=== PATIENT | male | born 1935 | race Caucasian/White ===

== ENCOUNTER 2016-07-30 13:09 | Emergency (ER) | payer OTHER ==
[2016-07-30 13:29] VITALS: TEMP 99.8; BMI 28.7
--- NOTE | 2016-07-30 14:06 | PDOC ---
History of Present Illness - General History Source: Patient Exam Limitations: No Limitations - History of Present Illness Initial Comments: CHIEF COMPLAINT: 81 y/o febrile male with PMH NIDDM, HTN c/o body aches, chills and fever for the past 2 days. HISTORY OF PRESENT ILLNESS: He also admits to nausea and vomiting today. He denies IBARRA, neck pain, sore throat, cough, CP, SOB, abd pain, back pain, hematuria, dysuria. The patient took Advil last night and this morning for his fever. He has been taking Amoxicillin 3x per day for a tooth that was pulled last week and he denies mouth pain. Vital signs on arrival are notable for temp of 99.8. REVIEW OF SYSTEMS: GENERAL/CONSTITUTIONAL: +fever/chills. +body aches. No weakness. No weight change. HEAD, EYES, EARS, NOSE AND THROAT: No change in vision. No ear pain or discharge. No sore throat. CARDIOVASCULAR: No chest pain or shortness of breath. RESPIRATORY: No cough, wheezing, or hemoptysis. GASTROINTESTINAL: +nausea and vomiting. No diarrhea, constipation, abd pain. GENITOURINARY: No dysuria, frequency, or change in urination. MUSCULOSKELETAL: No joint or muscle swelling or pain. No neck or back pain. SKIN: No rash or easy bruising. NEUROLOGIC: No headache, vertigo, loss of consciousness, or loss of sensation. PSYCHIATRIC: No depression or anxiety. ENDOCRINE: No increased thirst. No abnormal weight change. HEMATOLOGIC/LYMPHATIC: No anemia, easy bleeding, or history of blood clots. ALLERGIC/IMMUNOLOGIC: No hives or skin allergy. No latex allergy. PHYSICAL EXAM: GENERAL: The patient is awake, alert, and fully oriented, in no acute distress. He is ambulatory and non toxic appearing. HEAD: Normal with no signs of trauma. ENT: Pupils equal, round and reactive to light, extraocular movements intact, sclera anicteric, conjunctiva clear. Neck supple. Mucous membranes moist. LUNGS: Clear to auscultation bilaterally. Normal excursion. No respiratory distress or use of accessory muscles. CV: RRR, S1/S2, no MRG. Cap refill < 2 sec. ABDOMEN: Soft, non-distended, non-tender even to deep palpation, no hepatomegaly or splenomegaly, no masses. EXTREMITIES: Normal range of motion, no edema. NEUROLOGICAL: Normal speech, normal gait. CN II-XII grossly intact. PSYCH: Normal mood, normal affect. SKIN: Warm, dry, normal turgor, no rashes or lesions noted. <Mary Paredes - Last Filed: 07/30/16 19:14> <Giana العلي - Last Filed: 07/30/16 20:37> - General Chief Complaint: Weakness Stated Complaint: WEAKNESS Time Seen by Provider: 07/30/16 13:54 Past History - Past Medical History Diabetes: Yes HTN: Yes Hypercholesterolemia: Yes - Psycho/Social/Smoking Cessation Hx Suicidal Ideation: No Smoking History: Never smoked Have you smoked in the past 12 months: Yes Number of Cigarettes Smoked Daily: 1 Information on smoking cessation initiated: No Hx Alcohol Use: Yes Drug/Substance Use Hx: No Hx Substance Use Treatment: No <Mary Paredes - Last Filed: 07/30/16 19:14> <Giana العلي - Last Filed: 07/30/16 20:37> - Past Medical History Allergies/Adverse Reactions: Allergies Allergy/AdvReac Type Severity Reaction Status Date / Time No Known Drug Allergies Allergy Verified 07/30/16 13:29 Home Medications: Ambulatory Orders Aspirin Coated [Ecotrin -] 81 mg PO DAILY 08/31/13 Metoprolol Succinate [Toprol XL -] 50 mg PO DAILY 08/31/13 Allopurinol [Zyloprim -] 100 mg PO DAILY 07/30/16 Amlodipine Besylate 5 mg PO 07/30/16 Amoxicillin - [Amoxicillin 500mg Capsule -] 500 mg PO TID 07/30/16 Glimepiride [Amaryl -] 4 mg PO DAILY 07/30/16 Mirabegron [Myrbetriq] 50 mg PO 07/30/16 Sitagliptin Phosphate [Januvia] 50 mg PO 07/30/16 *Physical Exam - Vital Signs Last Vital Signs Temp Pulse Resp BP Pulse Ox 99.8 F H 79 18 128/77 97 07/30/16 13:25 07/30/16 13:25 07/30/16 13:25 07/30/16 13:25 07/30/16 13:25 <Mary Paredes - Last Filed: 07/30/16 19:14> - Vital Signs Last Vital Signs Temp Pulse Resp BP Pulse Ox 99.8 F H 70 16 146/86 97 07/30/16 13:25 07/30/16 17:31 07/30/16 17:31 07/30/16 17:31 07/30/16 17:31 <Giana العلي - Last Filed: 07/30/16 20:37> ED Treatment Course - LABORATORY CBC & Chemistry Diagram: 07/30/16 14:26 07/30/16 14:26 <Mary Paredes - Last Filed: 07/30/16 19:14> - LABORATORY CBC & Chemistry Diagram: 07/30/16 14:26 07/30/16 18:20 - ADDITIONAL ORDERS Additional order review: Laboratory Results 07/30/16 07/30/16 18:20 14:26 Sodium 141 Potassium 4.6 D 5.9 H Chloride 105 Carbon Dioxide 27 Anion Gap 9 BUN 43 H Creatinine 3.2 H Creat Clearance w eGFR 18.74 Random Glucose 78 Calcium 10.7 H Total Bilirubin 0.5 AST 42 H ALT 31 D Alkaline Phosphatase 46 Total Protein 9.0 H Albumin 4.1 07/30/16 14:26 Influenza Types A,B Antigen (HAZEL) - Final Nasopharyngeal Swab - Final 07/30/16 14:26 RBC 5.57 MCV 86.4 MCHC 32.3 RDW 15.2 MPV 7.5 Neutrophils % 69.0 Lymphocytes % 18.8 Monocytes % 7.8 Eosinophils % 3.8 Basophils % 0.6 - Medications Given in the ED: ED Medications Discontinued Medications Generic Name Dose Route Start Last Admin Trade Name Rajiv PRN Reason Stop Dose Admin Acetaminophen 1,000 mg 07/30/16 14:07 07/30/16 14:42 Ofirmev Injection - IVPB 07/30/16 14:08 1,000 mg ONCE ONE Administration Sodium Chloride 1,000 mls @ 1,000 mls/hr 07/30/16 14:07 07/30/16 14:41 Normal Saline - IV 07/30/16 15:06 1,000 mls/hr ASDIR STA Administration Sodium Chloride 1,000 mls @ 1,000 mls/hr 07/30/16 16:00 07/30/16 16:35 Normal Saline - IV 07/30/16 16:59 1,000 mls/hr ASDIR STA Administration Ondansetron HCl 4 mg 07/30/16 14:37 07/30/16 15:17 Zofran Injection IVPUSH 07/30/16 14:38 Not Given ONCE ONE <Giana العلي - Last Filed: 07/30/16 20:37> Medical Decision Making - Medical Decision Making A/P: 81 y/o febrile male with possible flu. Plan is as follows: 1. Labs 2. IV fluids 3. Ofirmev 4. IV zofran 5. Influenza A&B Influenza A&B - negative Potassium 5.9. Ordered 2nd bag IV fluids The patient states he feels much better after 2 bags of fluid and Tylenol. Potassium has improved. Will discharge to home with dx of viral syndrome. Suggested he take 650mg of TYlenol every 4 hours for fever, drink plenty of fluids and f/u with his PCP this week. Pt instructed to return to the ER with any worsening or concerning symptoms The patient verbalizes understanding of all instructions, has no further questions and is awaiting discharge. <Mary Paredes - Last Filed: 07/30/16 19:14> - Medical Decision Making 07/30/16 20:34 Patient K+ 4.6. Spoke with patient son who confirmed with his mother that BUN/ Creat are usually 25/>2.5. This is the patients normal values per family. Patient feeling better and has no other complaints at this time. <Giana العلي - Last Filed: 07/30/16 20:37> *DC/Admit/Observation/Transfer <Mary Paredes - Last Filed: 07/30/16 19:14> - Discharge Dispostion Admit: No <Giana العلي - Last Filed: 07/30/16 20:37> Diagnosis at time of Disposition: Viral syndrome, Dehydration, Mild renal insufficiency - Discharge Dispostion Disposition: HOME Condition at time of disposition: Improved - Referrals Referrals: Lauren Dupont MD [Primary Care Provider] - Call tomorrow - Patient Instructions Printed Discharge Instructions: DI for Viral Syndrome Additional Instructions: Discharge Instructions: -Take 650mg of Tylenol every 4 hours for fever -Drink plenty of fluids -Get plenty of rest -Call your doctor in the morning -Return to the ER with any worsening or concerning symptoms. - Post Discharge Activity Work/School Note: Back to Work
[2016-07-30] MEDS ORDERED: SODIUM CHLORIDE 1,000 ML IV STA ×2 (14:07→16:00)
[2016-07-30] MEDS ORDERED: ACETAMINOPHEN 1000 MG/100 ML VIAL (NON FORMULARY) IVPB ONE (14:07)
[2016-07-30] MEDS ORDERED: ACETAMINOPHEN INJECTION 100 ML IVPB ONE (14:10)
[2016-07-30] MEDS ORDERED: ONDANSETRON 4 MG/2 ML VIAL IVPUSH ONE (14:37)
[2016-07-30 14:44] LABS: BASOPHIL 0.6 % (0-2.0); EOSINOPHIL 3.8 % (0-4.5); MCH 27.9 pg (25.7-33.7); MCHC 32.3 g/dl (32.0-35.9); MEAN CELL VOLUME 86.4 fl (80-96); MEAN PLT VOLUME 7.5 fl (7.5-11.1); PLATELET COUNT 239 K/MM3 (134-434); RDW 15.2 % (11.9-15.9); WHITE BLOOD COUNT 7.6 K/mm3 (4.0-10.0)
[2016-07-30] MEDS ORDERED: ONDANSETRON 4 MG/2 ML VIAL ONE (14:59)
[2016-07-30 15:07] LABS: ALBUMIN 4.1 g/dl (3.4-5.0); BILIRUBIN,TOTAL 0.5 mg/dL (0.2-1.0); CALCIUM 10.7 mg/dL (8.5-10.1); CREATININE 3.2 mg/dL (0.7-1.3)
[2016-07-30 17:32] VITALS: BP 146/86; PULSE 70
== END 2016-07-30 20:40 | disposition home or self-care (01) ==
LOC: JER 13:09
PROC: 3E0337Z Introduction of Electrolytic and Water Balance Substance into Peripheral Vein, Percutaneous Approach (ICD-10-PCS; principal; 2016-07-30)
PROC: 3E033NZ Introduction of Analgesics, Hypnotics, Sedatives into Peripheral Vein, Percutaneous Approach (ICD-10-PCS; 2016-07-30)
DX: B34.9 Viral infection, unspecified (principal); E86.0 Dehydration; N28.9 Disorder of kidney and ureter, unspecified; I10 Essential (primary) hypertension; E11.9 Type 2 diabetes mellitus without complications; Z79.84 Long term (current) use of oral hypoglycemic drugs; E78.00 Pure hypercholesterolemia, unspecified
CPT/HCPCS: 36415; 80053; 84132; 85025; 87804; 96361; 96374; 99282-25

== ENCOUNTER 2016-08-04 13:23 | Inpatient (IN) | payer OTHER ==
[2016-08-04] MEDS ORDERED: ONDANSETRON 4 MG/2 ML VIAL IVPB ONE (13:46)
[2016-08-04] MEDS ORDERED: SODIUM CHLORIDE 500 ML IV STA (13:46)
[2016-08-04 14:32] LABS: BASOPHIL 0.6 % (0-2.0); MCHC 32.6 g/dl (32.0-35.9); MEAN PLT VOLUME 7.7 fl (7.5-11.1); NEUTROPHILS 59.4 % (42.8-82.8); PLATELET COUNT 224 K/MM3 (134-434); RDW 15.1 % (11.9-15.9); WHITE BLOOD COUNT 7.3 K/mm3 (4.0-10.0)
--- NOTE | 2016-08-04 14:36 | PDOC ---
History of Present Illness - General History Source: Patient Exam Limitations: No Limitations - History of Present Illness Initial Comments: 08/04/16 18:42 The patient is a 81 year old male, with a significant past medical history of NIDDM and hypertension, who presents to the emergency department sent from PMD Dr. Dupont with dehydration and decreased appetite. As per family the patient is weak and tremorous. Patient was recently seen in the ED and had a negative flu swab and workup. He reports constipation. Patient denies any abdominal pain. Patient denies any visual changes or blurry vision, focal numbness/ tingling/weakness, fever/chills. He denies chest pain, shortness of breath, headache and dizziness. He denies nausea, vomit, diarrhea. He denies dysuria, frequency, urgency and hematuria. Social: denies any EtOH use PCP- Dr. Dupont <Maryann Blake - Last Filed: 08/04/16 18:42> <Rosales Jimenez - Last Filed: 08/05/16 09:23> - General Chief Complaint: Vomiting/Diarrhea Stated Complaint: SENT BY PCP Time Seen by Provider: 08/04/16 13:46 Past History <Maryann Blake - Last Filed: 08/04/16 18:42> - Past Medical History Diabetes: Yes Disorders: Yes (RENAL INSUFFICIENCY) HTN: Yes Hypercholesterolemia: Yes - Psycho/Social/Smoking Cessation Hx Anxiety: No Suicidal Ideation: No Smoking History: Never smoked Have you smoked in the past 12 months: Yes Number of Cigarettes Smoked Daily: 1 Hx Alcohol Use: No Drug/Substance Use Hx: No Substance Use Type: None Hx Substance Use Treatment: No <Rosales Jimenez - Last Filed: 08/05/16 09:23> - Past Medical History Allergies/Adverse Reactions: Allergies Allergy/AdvReac Type Severity Reaction Status Date / Time No Known Drug Allergies Allergy Verified 08/04/16 13:28 Home Medications: Ambulatory Orders Aspirin Coated [Ecotrin -] 81 mg PO DAILY 08/31/13 Metoprolol Succinate [Toprol XL -] 50 mg PO DAILY 08/31/13 Allopurinol [Zyloprim -] 100 mg PO DAILY 07/30/16 Amlodipine Besylate 5 mg PO DAILY 07/30/16 Amoxicillin - [Amoxicillin 500mg Capsule -] 500 mg PO TID 07/30/16 Glimepiride [Amaryl -] 4 mg PO DAILY 07/30/16 Mirabegron [Myrbetriq] 50 mg PO DAILY 07/30/16 Sitagliptin Phosphate [Januvia] 50 mg PO DAILY 07/30/16 Review of Systems - Review of Systems Able to Perform ROS?: Yes Comments:: 08/04/16 18:42 CONSTITUTIONAL: Reported: Generalized weakness, decreased appetite No reported: Fever, Chills, Diaphoresis, Malaise HEENT: No reported: Rhinorrhea, Nasal Congestion, Throat Pain, Throat Swelling, Difficulty Swallowing, Mouth Swelling, Ear Pain, Eye Pain, Visual Changes CARDIOVASCULAR: No reported: Chest Pain, Syncope, Palpitations, Irregular Heart Rate, Lightheadedness, Peripheral Edema RESPIRATORY: No reported: Cough, Shortness of Breath, SOB with Exertion, Orthopnea, Wheezing , Stridor, Hemoptysis GASTROINTESTINAL: No reported: Abdominal pain, Abdominal Distension, Nausea, Vomiting, Diarrhea, Constipation, Melena, Hematochezia GENITOURINARY: No reported: Dysuria, Frequency, Urgency, Hesitancy, Flank Pain, Genital Pain MUSCULOSKELETAL: No reported: Myalgia, Arthralgia, Joint Swelling, Back pain, Neck Pain SKIN: No reported: Rash, Itching, Pallor HEMATOLOGIC/IMMUNOLOGIC: No reported: Easy Bleeding, Easy Bruising, Lymphadenopathy, Frequent infections ENDOCRINE: No reported: Unexplained Weight Gain, Unexplained Weight Loss, Heat Intolerance , Cold Intolerance NEUROLOGIC: No reported: Headache, Focal Weakness, Paresthesias, Vertigo, Lightheadedness, Unsteady Gait, Seizure, Mental Status Changes, Incontinence PSYCHIATRIC: No reported: Anxiety, Depression <Maryann Blake - Last Filed: 08/04/16 18:42> *Physical Exam - Vital Signs Last Vital Signs Temp Pulse Resp BP Pulse Ox 98.7 F 84 18 130/98 98 08/04/16 17:46 08/04/16 17:46 08/04/16 17:46 08/04/16 17:46 08/04/16 17:46 - Physical Exam Comments: 08/04/16 18:43 GENERAL: The patient is awake, alert, and fully oriented, Nontoxic - in no acute distress. HEAD: Normocephalic, atraumatic. EYES: extraocular movements intact, sclera anicteric, conjunctiva clear. ENT: Normal voice, dry mucous membranes. NECK: Normal range of motion, No JVD LUNGS: Breath sounds equal, clear to auscultation bilaterally. No wheezes, no rhonchi, no rales. HEART: Regular rate and rhythm, normal S1 and S2 without murmur, rub or gallop. ABDOMEN: Soft, nontender, normoactive bowel sounds. No guarding, no rebound. No masses. No CVA tenderness EXTREMITIES: Normal range of motion, no edema. No clubbing or cyanosis. No cords , erythema, or tenderness. NEUROLOGICAL: No facial asymmetry, Normal speech, normal non ataxic gait with assistance, tremulous PSYCH: Normal mood, normal affect. SKIN: Warm, Dry, normal turgor. <Maryann Blake - Last Filed: 08/04/16 18:42> - Vital Signs Last Vital Signs Temp Pulse Resp BP Pulse Ox 97.4 F L 81 20 149/98 95 08/04/16 13:24 08/04/16 13:24 08/04/16 13:24 08/04/16 13:24 08/04/16 13:24 <Rosales Jimenez - Last Filed: 08/05/16 09:23> Heart Score/ECG Review - ECG Impressions Comment:: 08/04/16 17:44 Twelve-lead EKG was performed and reviewed by me. normal rate. rate of 80 The axis is normal. The intervals are normal. There is normal R wave progression There are no ST or T wave abnormalities. Impression: suspect nsr <Rosales Jimenez - Last Filed: 08/05/16 09:23> ED Treatment Course - LABORATORY CBC & Chemistry Diagram: 08/04/16 14:00 08/04/16 14:00 - ADDITIONAL ORDERS Additional order review: Laboratory Results 08/04/16 08/04/16 08/04/16 14:50 14:09 14:00 INR Sodium 148 H Potassium 4.4 Chloride 103 Carbon Dioxide 26 Anion Gap 19 H BUN 54 H D Creatinine 3.2 H Creat Clearance w eGFR 18.74 Random Glucose 86 Lactic Acid 1.300 Calcium 9.8 Magnesium 2.7 H Total Bilirubin 0.4 AST 17 D ALT 26 Alkaline Phosphatase 44 L Total Protein 8.0 Albumin 3.9 Urine Color Ltyellow Urine Appearance Slcloudy Urine pH 5.0 Ur Specific [place] 1.011 Urine Protein Negative Urine Glucose (UA) Negative Urine Ketones Negative Urine Blood Negative Urine Nitrite Negative Urine Bilirubin Negative Urine Urobilinogen Negative Ur Leukocyte Esterase Trace H Urine RBC 4 Urine WBC 5 Ur Epithelial Cells Rare Hyaline Casts 16 Granular Casts 15 Urine Mucus Rare 08/04/16 14:00 INR 1.10 Sodium Potassium Chloride Carbon Dioxide Anion Gap BUN Creatinine Creat Clearance w eGFR Random Glucose Lactic Acid Calcium Magnesium Total Bilirubin AST ALT Alkaline Phosphatase Total Protein Albumin Urine Color Urine Appearance Urine pH Ur Specific [place] Urine Protein Urine Glucose (UA) Urine Ketones Urine Blood Urine Nitrite Urine Bilirubin Urine Urobilinogen Ur Leukocyte Esterase Urine RBC Urine WBC Ur Epithelial Cells Hyaline Casts Granular Casts Urine Mucus 08/04/16 14:00 Influenza Types A,B Antigen (HAZEL) - Final Nasopharyngeal Swab - Final 08/04/16 14:00 RBC 5.36 MCV 86.0 MCHC 32.6 RDW 15.1 MPV 7.7 Neutrophils % 59.4 Lymphocytes % 27.4 D Monocytes % 8.6 Eosinophils % 4.0 Basophils % 0.6 - Medications Given in the ED: ED Medications Discontinued Medications Generic Name Dose Route Start Last Admin Trade Name Freq PRN Reason Stop Dose Admin Sodium Chloride 500 mls @ 500 mls/hr 08/04/16 13:46 08/04/16 15:09 Normal Saline - IV 08/04/16 14:45 500 mls/hr ASDIR STA Administration Ondansetron HCl 4 mg 08/04/16 13:46 08/04/16 15:23 Zofran Injection IVPB 08/04/16 13:47 Not Given ONCE ONE <Maryann Blake - Last Filed: 08/04/16 18:42> - LABORATORY CBC & Chemistry Diagram: 08/04/16 14:00 08/05/16 06:35 - ADDITIONAL ORDERS Additional order review: 08/04/16 14:00 RBC 5.36 MCV 86.0 MCHC 32.6 RDW 15.1 MPV 7.7 Neutrophils % 59.4 Lymphocytes % 27.4 D Monocytes % 8.6 Eosinophils % 4.0 Basophils % 0.6 - RADIOLOGY Radiology Studies Ordered: Category Date Time Status CHEST X-RAY PORTABLE* [RAD] Stat Radiology 08/04/16 13:46 Ordered <Rosales Jimenez - Last Filed: 08/05/16 09:23> Medical Decision Making - Medical Decision Making 08/04/16 15:07 81y F hx of htn, dm, hl sent by PMD for evaluation of FTT, also noted to be more shaky than usual - norecentfever/chills, sob, cp, abd pain, nv, diarrhea. pts exam unrearkable, only generally weak and UE are mildly tremlous. nonfocal exam differential includes metablolic derangement, anemia, occult infection will give fluids for hydration will reassess 08/04/16 17:03 case dw/ dr dupont (PMD) states his renal function is typically 2.2, currently 3.5, stable from previous - jeimy need hydration ct head showc chronic infarct dr. densia becerril pt to be admitted for hydration will boserve in med/surg case d/w [facility] RN en will admit under dr. raymond service Case discussed in detail with admitting physician including history, physical exam and ancillary studies. Admitting physician has assumed care for the patient, will follow all pending diagnostics and will complete the evaluation and treatment. A portion of this note was documented by scribe services under my direction. I have reviewed the details of the note, within reason, and agree with the documentation with the following case summary and management plan written by me <Rosales Jimenez - Last Filed: 08/05/16 09:23> *DC/Admit/Observation/Transfer - Attestations Scribe Attestion: 08/04/16 18:43 Documentation prepared by VERA Paul, acting as resident medical officer for Rosales Jimenez MD. <Maryann Blake - Last Filed: 08/04/16 18:42> - Discharge Dispostion Admit: Yes <Rosales Jimenez - Last Filed: 08/05/16 09:23> Diagnosis at time of Disposition: Dehydration, Acute on chronic renal failure, Coarse tremors - Discharge Dispostion Condition at time of disposition: Stable - Referrals
[2016-08-04 15:01] LABS: INR 1.1 (0.82-1.09); PROTHROMBIN TIME (PATIENT) 12.1 SEC (9.98-11.88)
[2016-08-04 15:04] LABS: URINE APPEARANCE SLCLOUDY; URINE BILIRUBIN NEGATIVE (NEGATIVE); URINE BLOOD NEGATIVE (NEGATIVE); URINE COLOR LTYELLOW; URINE GLUCOSE (UA) NEGATIVE (NEGATIVE); URINE KETONE NEGATIVE (NEGATIVE); URINE NITRITE NEGATIVE (NEGATIVE); URINE PROTEIN NEGATIVE (NEGATIVE); URINE UROBILINOGEN NEGATIVE E.U./dl (0.2-1.0)
[2016-08-04 15:08] LABS: URINE LEUK ESTERASE TRACE (NEGATIVE)
[2016-08-04 15:09] LABS: ALBUMIN 3.9 g/dl (3.4-5.0); BILIRUBIN,TOTAL 0.4 mg/dL (0.2-1.0); CALCIUM 9.8 mg/dL (8.5-10.1); CREATININE 3.2 mg/dL (0.7-1.3); MAGNESIUM 2.7 mg/dL (1.8-2.4)
[2016-08-04 15:13] LABS: GRANULAR CASTS 15 /lpf; URINE HYALINE CAST 16 /lpf; URINE MUCUS RARE; URINE RBC 4 /hpf (0-3); URINE WBC 5 /hpf (3-5)
--- NOTE | 2016-08-04 16:05 | EKG ---
Test Reason : Blood Pressure : / mmHG Vent. Rate : 080 BPM Atrial Rate : 079 BPM P-R Int : 180 ms QRS Dur : 090 ms QT Int : 384 ms P-R-T Axes : 044 055 059 degrees QTc Int : 442 ms POOR DATA QUALITY, INTERPRETATION MAY BE ADVERSELY AFFECTED BASELINE ARTIFACT:: LIKELY NORMAL SINUS RHYTHM, BUT CANNOT R/O ATRIAL ARRHYTHMIA. OTHERWISE NORMAL ECG NO PREVIOUS ECGS AVAILABLE RECOMMEND REPEAT EKG. Confirmed by CHANTE BALDERAS MD ([id number]) on 08/04/2016 4:05:18 PM Referred By: Confirmed By:CHANTE BALDERAS MD
[2016-08-04] MEDS ORDERED: SODIUM CHLORIDE 1,000 ML IV SCH (17:15)
--- NOTE | 2016-08-04 17:23 | PN ---
Physical Exam: SUBJECTIVE: Patient seen and examined OBJECTIVE: Vital Signs Period Temp Pulse Resp BP Sys/Kay Pulse Ox Last 24 Hr 97.4 F 81 20 149/98 95 GENERAL: The patient is awake, alert, and fully oriented, in no acute distress. HEAD: Normal with no signs of trauma. EYES: PERRL, extraocular movements intact, sclera anicteric, conjunctiva clear. No ptosis. ENT: Ears normal, nares patent, oropharynx clear without exudates, moist mucous membranes. NECK: Trachea midline, full range of motion, supple. LUNGS: Breath sounds equal, clear to auscultation bilaterally, no wheezes, no crackles, no accessory muscle use. HEART: Regular rate and rhythm, S1, S2 without murmur, rub or gallop. ABDOMEN: Soft, nontender, nondistended, normoactive bowel sounds, no guarding, no rebound, no hepatosplenomegaly, no masses. EXTREMITIES: 2+ pulses, warm, well-perfused, no edema. NEUROLOGICAL: Cranial nerves II through XII grossly intact. Normal speech, gait not observed. PSYCH: Normal mood, normal affect. SKIN: Warm, dry, normal turgor, no rashes or lesions noted Laboratory Results - last 24 hr 08/04/16 08/04/16 08/04/16 14:00 14:00 14:00 WBC 7.3 RBC 5.36 Hgb 15.0 Hct 46.1 MCV 86.0 MCHC 32.6 RDW 15.1 Plt Count 224 MPV 7.7 Neutrophils % 59.4 Lymphocytes % 27.4 D Monocytes % 8.6 Eosinophils % 4.0 Basophils % 0.6 INR 1.10 Sodium 148 H Potassium 4.4 Chloride 103 Carbon Dioxide 26 Anion Gap 19 H BUN 54 H D Creatinine 3.2 H Creat Clearance w eGFR 18.74 Random Glucose 86 Lactic Acid Calcium 9.8 Magnesium 2.7 H Total Bilirubin 0.4 AST 17 D ALT 26 Alkaline Phosphatase 44 L Total Protein 8.0 Albumin 3.9 Urine Color Urine Appearance Urine pH Ur Specific [place] Urine Protein Urine Glucose (UA) Urine Ketones Urine Blood Urine Nitrite Urine Bilirubin Urine Urobilinogen Ur Leukocyte Esterase Urine RBC Urine WBC Ur Epithelial Cells Hyaline Casts Granular Casts Urine Mucus 08/04/16 08/04/16 14:09 14:50 WBC RBC Hgb Hct MCV MCHC RDW Plt Count MPV Neutrophils % Lymphocytes % Monocytes % Eosinophils % Basophils % INR Sodium Potassium Chloride Carbon Dioxide Anion Gap BUN Creatinine Creat Clearance w eGFR Random Glucose Lactic Acid 1.300 Calcium Magnesium Total Bilirubin AST ALT Alkaline Phosphatase Total Protein Albumin Urine Color Ltyellow Urine Appearance Slcloudy Urine pH 5.0 Ur Specific [place] 1.011 Urine Protein Negative Urine Glucose (UA) Negative Urine Ketones Negative Urine Blood Negative Urine Nitrite Negative Urine Bilirubin Negative Urine Urobilinogen Negative Ur Leukocyte Esterase Trace H Urine RBC 4 Urine WBC 5 Ur Epithelial Cells Rare Hyaline Casts 16 Granular Casts 15 Urine Mucus Rare Active Medications Generic Name Dose Route Start Last Admin Trade Name Freq PRN Reason Stop Dose Admin Allopurinol 100 mg 08/05/16 10:00 Zyloprim - PO DAILY [facility] Amlodipine Besylate 5 mg 08/05/16 10:00 Norvasc - PO DAILY [facility] Aspirin 81 mg 08/05/16 10:00 Ecotrin - PO DAILY [facility] Glimepiride 4 mg 08/05/16 10:00 Amaryl - PO DAILY [facility] Sodium Chloride 1,000 mls @ 125 mls/hr 08/04/16 17:15 Normal Saline - IV ASDIR MINNA Metoprolol Succinate 50 mg 08/05/16 10:00 Toprol Xl - PO DAILY [facility] Non-Formulary Medication 50 mg 08/05/16 10:00 Mirabegron [Myrbetriq] PO DAILY [facility] Sitagliptin Phosphate 50 mg 08/05/16 10:00 Januvia - PO DAILY [facility] ASSESSMENT/PLAN:
[2016-08-04] MEDS ORDERED: SODIUM CHLORIDE 0.45% 1,000 ML IV SCH (17:30)
--- NOTE | 2016-08-04 18:12 | HP ---
CHIEF COMPLAINT: Shaking PCP: Dr. Dupont Manager Site: Dr. Jackman HISTORY OF PRESENT ILLNESS: This is an 81 year old male with a history of NIDDM , CKD, HTN, and tooth extraction approximately 1 week ago who presents to the ED for the second time complaining of subjective fevers/chills/rigors and generalized weakness. He reports that he had some vomiting and diarrhea one week ago, but that these have not recurred. He has not eaten for a full week because of poor appetite. He denies chest pain, shortness of breath, cough, abdominal pain, back pain, headache, dysuria, or any other symptoms. The patient was supposed to travel to [facility] this week, but did not go because he is feeling too ill. Patient is afebrile orally. ER course was notable for: (1) BUN/Cr 54/3.2 (baseline 2.2 per PCP) (2) AG 19 (3) Mild hypernatremia (148) (4) Flu negative Recent Travel: None PAST MEDICAL HISTORY: As per HPI PAST SURGICAL HISTORY: None Social History: Lives with son, retired Smoking: None Alcohol: Occasional Family History: No known family history of malignancies Allergies No Known Drug Allergies Allergy (Verified 08/04/16 13:28) HOME MEDICATIONS: Medication Instructions Recorded Aspirin Coated [Ecotrin -] 81 mg PO DAILY 08/31/13 Metoprolol Succinate [Toprol XL -] 50 mg PO DAILY 08/31/13 Allopurinol [Zyloprim -] 100 mg PO DAILY 07/30/16 Amlodipine Besylate 5 mg PO DAILY 07/30/16 Amoxicillin - [Amoxicillin 500mg 500 mg PO TID 07/30/16 Capsule -] Glimepiride [Amaryl -] 4 mg PO DAILY 07/30/16 Mirabegron [Myrbetriq] 50 mg PO DAILY 07/30/16 Sitagliptin Phosphate [Januvia] 50 mg PO DAILY 07/30/16 REVIEW OF SYSTEMS CONSTITUTIONAL: Subjective fevers/chills, generalized weakness, loss of appetite , malaise HEENT: Absent: rhinorrhea, nasal congestion, throat pain, throat swelling, difficulty swallowing, mouth swelling, ear pain, eye pain, visual changes CARDIOVASCULAR: Absent: chest pain, syncope, palpitations, irregular heart rate, lightheadedness , peripheral edema RESPIRATORY: Absent: cough, shortness of breath, dyspnea with exertion, orthopnea, wheezing, stridor, hemoptysis GASTROINTESTINAL: Absent: abdominal pain, abdominal distension, nausea, vomiting, diarrhea, constipation, melena, hematochezia GENITOURINARY: Absent: dysuria, frequency, urgency, hesitancy, hematuria, flank pain, genital pain MUSCULOSKELETAL: Absent: myalgia, arthralgia, joint swelling, back pain, neck pain SKIN: Absent: rash, itching, pallor HEMATOLOGIC/IMMUNOLOGIC: Absent: easy bleeding, easy bruising, lymphadenopathy, frequent infections ENDOCRINE: Absent: unexplained weight gain, unexplained weight loss, heat intolerance, cold intolerance NEUROLOGIC: Absent: headache, focal weakness or paresthesias, dizziness, unsteady gait, seizure, mental status changes, bladder or bowel incontinence PSYCHIATRIC: Absent: anxiety, depression, suicidal or homicidal ideation, hallucinations. PHYSICAL EXAMINATION Vital Signs - 24 hr 08/04/16 17:46 Temperature 98.7 F Pulse Rate [ 84 Left Radial] Respiratory 18 Rate Blood Pressure 130/98 [Right Arm] O2 Sat by Pulse 98 Oximetry (%) GENERAL: Awake, alert, and fully oriented, appears weak. HEAD: Normal with no signs of trauma. EYES: Pupils equal, round and reactive to light, extraocular movements intact, sclera anicteric, conjunctiva clear. No lid lag. EARS, NOSE, THROAT: Ears normal, nares patent, oropharynx clear without exudates. Moist mucous membranes. NECK: Normal range of motion, supple without lymphadenopathy, JVD, or masses. LUNGS: Breath sounds equal, clear to auscultation bilaterally. No wheezes, and no crackles. No accessory muscle use. HEART: Regular rate and rhythm, normal S1 and S2 without murmur, rub or gallop. ABDOMEN: Soft, nontender, not distended, normoactive bowel sounds, no guarding, no rebound, no masses. No hepatomegaly or splenomegaly. MUSCULOSKELETAL: Normal range of motion at all joints. No bony deformities or tenderness. No CVA tenderness. UPPER EXTREMITIES: 2+ pulses, warm, well-perfused. No cyanosis. No clubbing. Cap refill <2 seconds. No peripheral edema. LOWER EXTREMITIES: 2+ pulses, warm, well-perfused. No calf tenderness. No peripheral edema. NEUROLOGICAL: Cranial nerves II-XII intact. Normal speech. Normal gait. PSYCHIATRIC: Cooperative. Good eye contact. Appropriate mood and affect. SKIN: Warm, dry, normal turgor, no rashes or lesions noted. ASSESSMENT/PLAN: 81 year old male with weakness, loss of appetite, fever/chills/ rigors Problem List - Problem (1) Fever and chills Assessment/Plan: -Although no fever is documented here, patient and son report intermittent fevers for one week. In addition, he has been taking Tylenol at home. -There are no focal infectious symptoms -Flu is negative -Obtain CXR -Obtain rectal temp now -Repeat lactic acid -Follow up blood cultures -With recent dental procedure and non-specific flu-like symptoms, would consider echocardiogram to evaluate for endocarditis -Tylenol prn fever -Gentle IVF Code(s): R50.9 - FEVER, UNSPECIFIED (2) Acute on chronic renal failure Assessment/Plan: -Gentle hydration -Patient's learning solutions specialist consulted Code(s): N17.9 - ACUTE KIDNEY FAILURE, UNSPECIFIED N18.9 - CHRONIC KIDNEY DISEASE, UNSPECIFIED (3) Dehydration Assessment/Plan: -Hydration as above Code(s): E86.0 - DEHYDRATION (4) Increased anion gap metabolic acidosis Assessment/Plan: -Repeat lactic acid -Send serum ketones -Hydration Code(s): E87.2 - ACIDOSIS (5) Hypernatremia Assessment/Plan: -1/2 NS at 75 mL/hr -Repeat BMP now (patient received 1L NS in ED) Code(s): E87.0 - HYPEROSMOLALITY AND HYPERNATREMIA (6) DVT prophylaxis Code(s): EBT3780 - Visit type - Emergency Visit Emergency Visit: Yes ED Registration Date: 08/04/16 Care time: The patient presented to the Emergency Department on the above date and was hospitalized for further evaluation of their emergent condition. - New Patient This patient is new to me today: Yes Date on this admission: 08/04/16 - Critical Care Critical Care patient: No
[2016-08-04 19:00] LABS: ANION GAP 12 (8-16); CALCIUM 9.3 mg/dL (8.5-10.1); CO2 23 mmol/L (21-32); CREATININE 3.1 mg/dL (0.7-1.3); GLUCOSE,RANDOM 87 mg/dL (74-106)
[2016-08-04 19:34] LABS: ACETONE SERUM NEGATIVE (NEGATIVE)
--- NOTE | 2016-08-04 21:51 | CONSULT ---
Consult - text type - Consultation Consultation Note: Renal Consult for MOHSEN on CKD This is a 81 year old Gentleman with PMhx of CKD (pt not able to provide baseline cr), Hypertension, DM Type 2 who presented with complaints fo fevers/ Chills and generalized weakness and found to have MOHSEN with BUN/Cr of 54/3.2. Pt states that he had not been eating or drinking normally because he did not have an appetite and for cheondoism reasons. Denies any NSAID use. + recent Abx use s/ p tooth extraction. Denies any difficulty voiding, hematuria or dark urine. No dysuria. Denies any CP, sob, or LE swelling. Pt started on IVF with mild improvement in renal function. PMhx: as above Allergies: NKDA Family Hx: NC Social hx: No T/A/D ROS: as per HPI Home Meds: Medication Instructions Recorded Aspirin Coated [Ecotrin -] 81 mg PO DAILY 08/31/13 Metoprolol Succinate [Toprol XL -] 50 mg PO DAILY 08/31/13 Allopurinol [Zyloprim -] 100 mg PO DAILY 07/30/16 Amlodipine Besylate 5 mg PO DAILY 07/30/16 Amoxicillin - [Amoxicillin 500mg 500 mg PO TID 07/30/16 Capsule -] Glimepiride [Amaryl -] 4 mg PO DAILY 07/30/16 Mirabegron [Myrbetriq] 50 mg PO DAILY 07/30/16 Sitagliptin Phosphate [Januvia] 50 mg PO DAILY 07/30/16 Vital Signs Temperature 98.3 F 08/04/16 18:53 Pulse Rate 81 08/04/16 18:53 Respiratory Rate 20 08/04/16 18:53 Blood Pressure 163/90 08/04/16 18:53 O2 Sat by Pulse Oximetry (%) 98 08/04/16 17:46 Intake & Output 08/01/16 08/02/16 08/03/16 08/04/16 23:59 23:59 23:59 23:59 Intake Total 350 Balance 350 Weight 175 lb 9.6 oz Gen: NAD, awake and alert HEENT: NC/AT, Dry MM, No JVD CVS: RRR, No M/R Lungs: CTA, no rales or wheeze Abd: soft, mild distension, + tenderness in LLQ Ext: No edema, clubbing or cyanosis : No overt bladder distension CBC, BMP 08/04/16 14:00 08/04/16 18:00 Laboratory Tests 08/04/16 08/04/16 08/04/16 14:00 14:00 14:50 Neutrophils % 59.4 Calcium Magnesium 2.7 H Albumin 3.9 Urine Glucose (UA) Negative Urine Blood Negative Urine RBC 4 Urine WBC 5 08/04/16 18:00 Neutrophils % Calcium 9.3 Magnesium Albumin Urine Glucose (UA) Urine Blood Urine RBC Urine WBC Current Medications Allopurinol (Zyloprim -) 100 mg PO DAILY [facility] Amlodipine Besylate (Norvasc -) 5 mg PO DAILY [facility] Aspirin (Ecotrin -) 81 mg PO DAILY [facility] Glimepiride (Amaryl -) 4 mg PO DAILY@0700 [facility] Sodium Chloride (1/2 Normal Saline) 1,000 mls @ 75 mls/hr IV ASDIR [facility] Stop: 08/05/16 06:49 Metoprolol Succinate (Toprol Xl -) 50 mg PO DAILY [facility] Non-Formulary Medication (Mirabegron [Myrbetriq]) 50 mg PO DAILY [facility] Sitagliptin Phosphate (Januvia -) 50 mg PO DAILY@0700 [facility] A/P 81 year old Gentleman with PMhx of CKD (pt not able to provide baseline cr), Hypertension, DM Type 2 who presented with complaints fo fevers/Chills and generalized weakness and found to have MOHSEN with BUN/Cr of 54/3.2. #Acute on Chronic Renal insuffiency with Hypernatremia in setting of Fever and decreased oral intake Likely etiology volume depletion leading to renal hypoperfusion Renal function already with mild improvement with IVF Check FeNa, UPCR Check Renal and Bladder US r/o partial obstruction Contine hyptonic saline at 75cc per hour Check BMP in am Avoid nsaids, IV contrast, fleet enemas Dose all med for Cr Cl less then 15 for now no indication for VULNERABILITY ASSESSMENT ANALYST #Fever/CHills F/u cultures, Echo not currently on Abx #Hypertension BP is above goal if continues to run high can increase Norvasc to 10g no ARTEMIO or ARB at this time Thank you Will follow Saw Esposito DO
[2016-08-05 00:09] VITALS: BMI 28.3
[2016-08-05] MEDS ORDERED: GLIMEPIRIDE 4 MG TABLET (FP) PO SCH (07:00)
[2016-08-05] MEDS ORDERED: sitaGLIPtin PHOSPHATE 50 MG TABLET PO SCH (07:00)
[2016-08-05 08:30] LABS: ALBUMIN 3.3 g/dl (3.4-5.0); BILIRUBIN,TOTAL 0.4 mg/dL (0.2-1.0); CALCIUM 9.5 mg/dL (8.5-10.1); CREATININE 5.2 mg/dL (0.7-1.3); MAGNESIUM 2.7 mg/dL (1.8-2.4); PHOSPHOROUS 4.4 mg/dL (2.5-4.9); TOT PROT 6.4 g/dl (6.4-8.2)
[2016-08-05] MEDS ORDERED: SODIUM CHLORIDE 500 ML IV STA (09:21)
[2016-08-05] MEDS ORDERED: ALLOPURINOL 100 MG TABLET (FP) PO SCH (10:00)
[2016-08-05] MEDS ORDERED: VANCOMYCIN 1 GRAM (PRE-DOCKED) 250 ML IVPB ONE (10:00)
[2016-08-05] MEDS ORDERED: amLODIPine BESYLATE 5 MG TABLET (FP) PO SCH (10:00)
[2016-08-05] MEDS ORDERED: amLODIPine BESYLATE 10 MG TABLET (FP) PO SCH (10:00)
[2016-08-05] MEDS ORDERED: PATIENT'S OWN MEDICATION (NON-FORMULARY) (Mirabegron [Myrbetriq] 50 MG) PO SCH (10:00)
[2016-08-05] MEDS ORDERED: VANCOMYCIN 1,000 MG in DEXTROSE 5%-WATER - 250 ML IVPB SCH (10:00)
[2016-08-05] MEDS ORDERED: SODIUM CHLORIDE 1,000 ML IV SCH (10:30)
[2016-08-05] MEDS: METOPROLOL SUCCINATE 50 MG TAB.SR.24H (FP) PO SCH (10:32)
[2016-08-05] MEDS: ASPIRIN COATED 81 MG TABLET.EC PO SCH (10:32)
[2016-08-05 11:06] LABS: URINE APPEARANCE CLEAR; URINE BILIRUBIN NEGATIVE (NEGATIVE); URINE BLOOD NEGATIVE (NEGATIVE); URINE COLOR LTYELLOW; URINE GLUCOSE (UA) NEGATIVE (NEGATIVE); URINE KETONE NEGATIVE (NEGATIVE); URINE LEUK ESTERASE TRACE (NEGATIVE); URINE NITRITE NEGATIVE (NEGATIVE); URINE PROTEIN NEGATIVE (NEGATIVE); URINE UROBILINOGEN NEGATIVE E.U./dl (0.2-1.0)
[2016-08-05 11:09] LABS: URIC ACID 4.6 mg/dL (2.6-7.2)
[2016-08-05 11:13] LABS: URINE MUCUS RARE; URINE RBC 2 /hpf (0-3); URINE WBC 8 /hpf (3-5)
[2016-08-05] MEDS: CEFTRIAXONE 100 ML IVPB SCH (11:27)
[2016-08-05] MEDS ORDERED: PIPERACILLIN/TAZOB 3.375 GM/50 ML PRE-DOCKED IVPB SCH (13:15)
--- NOTE | 2016-08-05 14:09 | PN ---
Physical Exam: SUBJECTIVE: Patient seen and examined oob to chair. , daughter, son-in-law present. OBJECTIVE: Vital Signs Period Temp Pulse Resp BP Sys/Kay Pulse Ox Last 24 Hr 97.4 F-98.7 F 75-84 18-20 130-163/75-98 98-98 GENERAL: The patient is awake, alert, and fully oriented, in no acute distress. HEAD: Normal with no signs of trauma. EYES: PERRL, extraocular movements intact, sclera anicteric, conjunctiva clear. No ptosis. LUNGS: Bilateral crackles long term up HEART: Regular rate and rhythm, S1, S2 without murmur, rub or gallop. ABDOMEN: Distended, tympanic, not tender EXTREMITIES: 2+ pulses, warm, well-perfused, no edema. NEUROLOGICAL: bilateral hand tremors, mild asterixis; cranial nerves II through XII grossly intact. Normal speech, gait not observed. Laboratory Results - last 24 hr 08/04/16 08/04/16 08/04/16 14:53 14:53 18:00 Sodium Potassium Chloride Carbon Dioxide Anion Gap BUN Creatinine Creat Clearance w eGFR POC Glucometer Random Glucose Lactic Acid 1.394 Uric Acid Calcium Phosphorus Magnesium Total Bilirubin AST ALT Alkaline Phosphatase Ammonia B-Natriuretic Peptide Total Protein Albumin Urine Color Urine Appearance Urine pH Ur Specific Stearns Urine Protein Urine Glucose (UA) Urine Ketones Urine Blood Urine Nitrite Urine Bilirubin Urine Urobilinogen Ur Leukocyte Esterase Urine RBC Urine WBC Ur Epithelial Cells Urine Mucus U Random Total Protein 9 Ur Random Sodium Urine Creatinine 107.0 Acetone, Qual 08/04/16 08/04/16 08/05/16 18:00 23:30 06:15 Sodium 143 Potassium 4.4 Chloride 108 H Carbon Dioxide 23 Anion Gap 12 BUN 53 H Creatinine 3.1 H Creat Clearance w eGFR POC Glucometer 101 Random Glucose 87 Lactic Acid Uric Acid Calcium 9.3 Phosphorus Magnesium Total Bilirubin AST ALT Alkaline Phosphatase Ammonia B-Natriuretic Peptide Total Protein Albumin Urine Color Urine Appearance Urine pH Ur Specific Stearns Urine Protein Urine Glucose (UA) Urine Ketones Urine Blood Urine Nitrite Urine Bilirubin Urine Urobilinogen Ur Leukocyte Esterase Urine RBC Urine WBC Ur Epithelial Cells Urine Mucus U Random Total Protein Ur Random Sodium 29 Urine Creatinine Acetone, Qual Negative 08/05/16 08/05/16 08/05/16 06:35 10:10 10:10 Sodium 137 Potassium 4.2 Chloride 99 Carbon Dioxide 28 D Anion Gap 10 BUN 49 H Creatinine 5.2 H D Creat Clearance w eGFR 10.70 POC Glucometer Random Glucose 87 Lactic Acid Uric Acid 4.6 Cancelled Calcium 9.5 Phosphorus 4.4 Magnesium 2.7 H Total Bilirubin 0.4 AST 16 ALT 25 Alkaline Phosphatase 103 D Ammonia B-Natriuretic Peptide Total Protein 6.4 Albumin 3.3 L Urine Color Ltyellow Urine Appearance Clear Urine pH 5.0 Ur Specific Stearns 1.011 Urine Protein Negative Urine Glucose (UA) Negative Urine Ketones Negative Urine Blood Negative Urine Nitrite Negative Urine Bilirubin Negative Urine Urobilinogen Negative Ur Leukocyte Esterase Trace H Urine RBC 2 Urine WBC 8 Ur Epithelial Cells Rare Urine Mucus Rare U Random Total Protein Ur Random Sodium Urine Creatinine Acetone, Qual 08/05/16 08/05/16 08/05/16 15:30 15:30 15:30 Sodium 143 Potassium 4.1 Chloride 104 Carbon Dioxide 27 Anion Gap 12 BUN 42 H Creatinine 2.6 H D Creat Clearance w eGFR POC Glucometer Random Glucose 80 Lactic Acid Uric Acid Calcium 8.8 Phosphorus Magnesium Total Bilirubin AST ALT Alkaline Phosphatase Ammonia 19.55 B-Natriuretic Peptide 33.11 Cancelled Total Protein Albumin Urine Color Urine Appearance Urine pH Ur Specific Stearns Urine Protein Urine Glucose (UA) Urine Ketones Urine Blood Urine Nitrite Urine Bilirubin Urine Urobilinogen Ur Leukocyte Esterase Urine RBC Urine WBC Ur Epithelial Cells Urine Mucus U Random Total Protein Ur Random Sodium Urine Creatinine Acetone, Qual Current Medications Generic Name Dose Route Start Last Admin Trade Name Freq PRN Reason Stop Dose Admin Amlodipine Besylate 5 mg 08/06/16 10:00 Norvasc - PO DAILY [facility] Aspirin 81 mg 08/05/16 10:00 08/05/16 10:32 Ecotrin - PO 81 mg DAILY [facility] Administration Heparin Sodium (Porcine) 5,000 unit 08/05/16 22:00 Heparin - SQ BID [facility] Ceftriaxone Sodium 100 mls @ 200 mls/hr 08/05/16 10:00 08/05/16 11:27 Rocephin 2gm Ivpb (Pre-Docked) IVPB 200 mls/hr DAILY [facility] Administration Sodium Chloride 1,000 mls @ 83 mls/hr 08/05/16 10:30 08/05/16 11:26 Normal Saline - IV 83 mls/hr ASDIR [facility] Administration Insulin Aspart 1 vial 08/05/16 16:30 Novolog Vial Sliding Scale - SQ ACHS [facility] Protocol Metoprolol Succinate 50 mg 08/05/16 10:00 08/05/16 10:32 Toprol Xl - PO 50 mg DAILY [facility] Administration Non-Formulary Medication 50 mg 08/05/16 10:00 Mirabegron [Myrbetriq] PO DAILY [facility] Polyethylene Glycol 17 gm 08/05/16 22:00 Miralax (For Daily Use) - PO BID [facility] ASSESSMENT/PLAN 81 year-old man with a PMH of HTN, NIDDM, CKD, s/p tooth extraction x 1 week who presents with subjective fever, chills, weakness, hand tremors, and decreased PO intake x 1 week. Quit smoking 2 months ago. Subjective fever/chills/malaise --r/o endocarditis: tooth extraction x 1 week, completed 5-day course of amoxicillin; echo ordered but cannot get until Saturday due to holiday weekend --pulmonary congestion on CXR and bilateral crackles on exam; get CT chest --belly is distended and tympanic; hand tremors and +asterixis, concern for liver disease/SBP; will get CTAP --pancultured --start ceftriaxone --ID following Acute on chronic kidney injury --baseline Cr reportedly 2.2 --Cr 3.2 on admission, peaked 5.2, now 2.6 with IV fluids --Fena 0.6% suggests prerenal etiology --CTAP pending --stopped allopurinol --discussed with Dr. Esposito Hypertension --continue Toprol XL 50 and amlodipine 5mg F/E/N Fluids: NS @ 83mL/hr Electrolytes: replete as indicated Nutrition: diabetic low sodium diet DVT prophylaxis: subq heparin, oob, ambulation Dispo: continues to require inpatient care. Full code. Visit type - Emergency Visit Emergency Visit: Yes ED Registration Date: 08/05/16 Care time: The patient presented to the Emergency Department on the above date and was hospitalized for further evaluation of their emergent condition. - New Patient This patient is new to me today: Yes Date on this admission: 08/05/16 - Critical Care Critical Care patient: No - Discharge Referral Referred to [facility] Med P.C.: No
[2016-08-05 16:09] LABS: CALCIUM 8.8 mg/dL (8.5-10.1); CREATININE 2.6 mg/dL (0.7-1.3)
--- NOTE | 2016-08-05 17:13 | CONSULT ---
Consult Consult Specialty:: infectious diseases Reason for Consultation:: fever - History of Present Illness Chief Complaint: fever,weakness History of Present Illness: 81 year old male with a history of NIDDM, CKD, HTN, and tooth extraction approximately 1 week ago who presents to the ED for the second time complaining of subjective fevers/chills/rigors and generalized weakness. He reports that he had some vomiting and diarrhea one week ago, but that these have not recurred. He has not eaten for a full week because of poor appetite. He denies chest pain , shortness of breath, cough, abdominal pain, back pain, headache, dysuria, or any other symptoms. The patient was supposed to travel to [facility] this week, but did not go because he is feeling too ill. history taken from the chart and his as patient not speaking jordanian also of note according to is patient has been having distension of the abd since last year or so patient is also having cough,patient cancelled his trip to [facility] because of his symptoms currently the patient is comfortable denies any events or issues - History Source History Provided By: Family Member Limitations to Obtaining History: Language Barrier - Alcohol/Substance Use Hx Alcohol Use: No - Smoking History Smoking history: Never smoked Have you smoked in the past 12 months: Yes Aproximately how many cigarettes per day: 1 Home Medications - Allergies Allergies/Adverse Reactions: Allergies Allergy/AdvReac Type Severity Reaction Status Date / Time No Known Drug Allergies Allergy Verified 08/04/16 13:28 - Home Medications Home Medications: Ambulatory Orders Aspirin Coated [Ecotrin -] 81 mg PO DAILY 08/31/13 Metoprolol Succinate [Toprol XL -] 50 mg PO DAILY 08/31/13 Allopurinol [Zyloprim -] 100 mg PO DAILY 07/30/16 Amlodipine Besylate 5 mg PO DAILY 07/30/16 Amoxicillin - [Amoxicillin 500mg Capsule -] 500 mg PO TID 07/30/16 Glimepiride [Amaryl -] 4 mg PO DAILY 07/30/16 Mirabegron [Myrbetriq] 50 mg PO DAILY 07/30/16 Sitagliptin Phosphate [Januvia] 50 mg PO DAILY 07/30/16 Review of Systems - Review of Systems Constitutional: reports: Fever, Weakness Eyes: reports: No Symptoms HENT: reports: No Symptoms Neck: reports: No Symptoms Cardiovascular: reports: No Symptoms Respiratory: reports: Cough, SOB Gastrointestinal: reports: Other Musculoskeletal: reports: No Symptoms Integumentary: reports: No Symptoms Neurological: reports: No Symptoms Endocrine: reports: No Symptoms Hematology/Lymphatic: reports: No Symptoms Psychiatric: reports: No Symptoms Physical Exam Vital Signs: Vital Signs Temperature 98.2 F 08/05/16 15:15 Pulse Rate 72 08/05/16 15:15 Respiratory Rate 20 08/05/16 15:15 Blood Pressure 110/74 08/05/16 15:15 O2 Sat by Pulse Oximetry (%) 98 08/04/16 19:30 Constitutional: Yes: Obese Eyes: Yes: Conjunctiva Clear HENT: Yes: Atraumatic, Normocephalic Neck: Yes: Supple, Trachea Midline Cardiovascular: Yes: Regular Rate and Rhythm Respiratory: Yes: Regular, Poor Air Entry, Rhonchi (at the bases left) Gastrointestinal: Yes: Soft, Abdomen, Obese Musculoskeletal: Yes: WNL, Other (tremors while stretching the arms) Extremities: Yes: Other Integumentary: Yes: Other Neurological: Yes: Alert, Oriented Psychiatric: Yes: Alert Labs: CBC, BMP 08/05/16 15:30 Imaging - Results Chest X-ray: Report Reviewed, Image Reviewed Cat Scan: Report Reviewed, Image Reviewed Assessment/Plan 81 year old Gentleman with PMhx of CKD , Hypertension, DM Type 2 who presented with complaints fo fevers/Chills and generalized weakness and found to have MOHSEN with BUN/Cr of 54/3.2. #Acute on Chronic Renal insuffiency with Hypernatremia in setting of Fever and decreased oral intake #Fever/CHills #Hypertension r/o ascites r/o portal hypertension plan will start patient on ceftriaxone await for all cx report ct scan of abdomen hydration rest as per renal
[2016-08-05] MEDS: INSULIN SLIDING SCALE (NOVOLOG) 1 VIAL SQ SCH ×2 (18:02→21:49)
[2016-08-05] MEDS ORDERED: INSULIN (NOVOLOG) ASPART 100 UNITS/ML 10ML VIAL ONE (21:14)
[2016-08-05] MEDS: HEPARIN NA (PORCINE) 5,000 UNITS/ML 1ML VIAL SQ SCH (21:47)
[2016-08-05] MEDS: POLYETHYLENE GLYCOL 3350 119 GM BTL PO SCH (21:48)
[2016-08-06] MEDS: INSULIN SLIDING SCALE (NOVOLOG) 1 VIAL SQ SCH ×4 (06:04→22:03)
[2016-08-06 07:39] LABS: BASOPHIL 0.3 % (0-2.0); MCH 27.8 pg (25.7-33.7); MCHC 32.9 g/dl (32.0-35.9); MEAN CELL VOLUME 84.6 fl (80-96); MEAN PLT VOLUME 7.8 fl (7.5-11.1); NEUTROPHILS 60.8 % (42.8-82.8); PLATELET COUNT 215 K/MM3 (134-434); RDW 14.7 % (11.9-15.9); WHITE BLOOD COUNT 6.5 K/mm3 (4.0-10.0)
[2016-08-06 07:53] LABS: ALBUMIN 3.5 g/dl (3.4-5.0); BILIRUBIN,TOTAL 0.4 mg/dL (0.2-1.0); CALCIUM 8.5 mg/dL (8.5-10.1); CREATININE 2.1 mg/dL (0.7-1.3); PHOSPHOROUS 2.8 mg/dL (2.5-4.9); TOT PROT 7.5 g/dl (6.4-8.2)
--- NOTE | 2016-08-06 08:57 | PN ---
Progress Note (short form) - Note Progress Note: Renal Follow up for MOHSEN on CKD Pt seen and examined at the bedside son present pt without any acute complaints good urine output denies any chest pain, abd pain, cough, sob Vital Signs Temperature 98.7 F 08/06/16 07:00 Pulse Rate 72 08/06/16 07:00 Respiratory Rate 20 08/06/16 07:00 Blood Pressure 143/80 08/06/16 07:00 O2 Sat by Pulse Oximetry (%) 93 L 08/05/16 21:00 Intake & Output 08/03/16 08/04/16 08/05/16 08/06/16 23:59 23:59 23:59 23:59 Intake Total 575 3412 618 Output Total 1476 550 Balance 575 1936 68 Weight 175 lb 9.6 oz 176 lb 8 oz Gen: NAD, awake and alert HEENT: NC/AT, Dry MM, No JVD CVS: RRR, No M/R Lungs: Dec BS but no rales Abd: soft, mild distension Ext: No edema, clubbing or cyanosis : No overt bladder distension CBC, BMP 08/06/16 06:35 08/06/16 06:35 Current Medications Amlodipine Besylate (Norvasc -) 5 mg PO DAILY [facility] Aspirin (Ecotrin -) 81 mg PO DAILY [facility] Last Admin: 08/05/16 10:32 Dose: 81 mg Heparin Sodium (Porcine) (Heparin -) 5,000 unit SQ BID [facility] Last Admin: 08/05/16 21:47 Dose: 5,000 unit Ceftriaxone Sodium (Rocephin 2gm Ivpb (Pre-Docked)) 100 mls @ 200 mls/hr IVPB DAILY [facility] Last Admin: 08/05/16 11:27 Dose: 200 mls/hr Sodium Chloride (Normal Saline -) 1,000 mls @ 83 mls/hr IV ASDIR [facility] Last Admin: 08/05/16 11:26 Dose: 83 mls/hr Insulin Aspart (Novolog Vial Sliding Scale -) 1 vial SQ ACHS [facility] PRN Reason: Protocol Last Admin: 08/06/16 06:04 Dose: Not Given Metoprolol Succinate (Toprol Xl -) 50 mg PO DAILY [facility] Last Admin: 08/05/16 10:32 Dose: 50 mg Non-Formulary Medication (Mirabegron [Myrbetriq]) 50 mg PO DAILY [facility] Polyethylene Glycol (Miralax (For Daily Use) -) 17 gm PO BID [facility] Last Admin: 08/05/16 21:48 Dose: 17 grams A/P 81 year old Gentleman with PMhx of CKD (pt not able to provide baseline cr), Hypertension, DM Type 2 who presented with complaints fo fevers/Chills and generalized weakness and found to have MOHSEN with BUN/Cr of 54/3.2. #Non-oligric Acute on Chronic Renal insuffiency with Hypernatremia in setting of Fever and decreased oral intake Renal function with improvement with IVF Son reports Cr was 2.2 about 1 month prior Urine studies consistent with pre-renal azotemia pt without significant proteinuria decrease IVF rate to 75cc per hour #Fever/CHills CT of Abd and Pelvis done results pending ECHO pending #Hypertension Bp acceptable today continue amlodipine and metoprolol Thank you Will follow Saw Esposito DO
[2016-08-06] MEDS: METOPROLOL SUCCINATE 50 MG TAB.SR.24H (FP) PO SCH (09:54)
[2016-08-06] MEDS: ASPIRIN COATED 81 MG TABLET.EC PO SCH (09:54)
[2016-08-06] MEDS: amLODIPine BESYLATE 5 MG TABLET (FP) PO SCH (09:54)
[2016-08-06] MEDS: HEPARIN NA (PORCINE) 5,000 UNITS/ML 1ML VIAL SQ SCH ×2 (09:55→22:03)
[2016-08-06] MEDS: POLYETHYLENE GLYCOL 3350 119 GM BTL PO SCH ×2 (09:56→22:03)
[2016-08-06] MEDS: SODIUM CHLORIDE 1,000 ML IV SCH ×2 (09:56→18:48)
[2016-08-06] MEDS ORDERED: CEFTRIAXONE 1 GM in DEXTROSE 5%-WATER - 50 ML IVPB SCH (10:00)
[2016-08-06] MEDS: CEFTRIAXONE 100 ML IVPB SCH (10:40)
--- NOTE | 2016-08-06 14:49 | PN ---
Progress Note, Physician History of Present Illness: patient stable feels much better in room - Current Medication List Current Medications: Active Medications Amlodipine Besylate (Norvasc -) 5 mg PO DAILY [facility] Last Admin: 08/06/16 09:54 Dose: 5 mg Aspirin (Ecotrin -) 81 mg PO DAILY [facility] Last Admin: 08/06/16 09:54 Dose: 81 mg Heparin Sodium (Porcine) (Heparin -) 5,000 unit SQ BID [facility] Last Admin: 08/06/16 09:55 Dose: 5,000 unit Ceftriaxone Sodium (Rocephin 2gm Ivpb (Pre-Docked)) 100 mls @ 200 mls/hr IVPB DAILY [facility] Last Admin: 08/06/16 10:40 Dose: 200 mls/hr Sodium Chloride (Normal Saline -) 1,000 mls @ 75 mls/hr IV ASDIR [facility] Last Admin: 08/06/16 09:56 Dose: 75 mls/hr Insulin Aspart (Novolog Vial Sliding Scale -) 1 vial SQ ACHS [facility] PRN Reason: Protocol Last Admin: 08/06/16 11:51 Dose: Not Given Metoprolol Succinate (Toprol Xl -) 50 mg PO DAILY [facility] Last Admin: 08/06/16 09:54 Dose: 50 mg Non-Formulary Medication (Mirabegron [Myrbetriq]) 50 mg PO DAILY [facility] Polyethylene Glycol (Miralax (For Daily Use) -) 17 gm PO BID [facility] Last Admin: 08/06/16 09:56 Dose: 17 grams - Objective Vital Signs: Vital Signs Temperature 98.7 F 08/06/16 07:00 Pulse Rate 72 08/06/16 07:00 Respiratory Rate 20 08/06/16 07:00 Blood Pressure 143/80 08/06/16 07:00 O2 Sat by Pulse Oximetry (%) 93 L 08/05/16 21:00 Constitutional: Yes: No Distress, Calm Eyes: Yes: Conjunctiva Clear HENT: Yes: Atraumatic Neck: Yes: Supple Cardiovascular: Yes: Regular Rate and Rhythm Respiratory: Yes: Regular, CTA Bilaterally Gastrointestinal: Yes: Normal Bowel Sounds, Soft Musculoskeletal: Yes: WNL Extremities: Yes: WNL Neurological: Yes: Alert, Oriented Psychiatric: Yes: Alert, Oriented Labs: CBC, BMP 08/06/16 06:35 08/06/16 06:35 INR, PTT INR 1.10 (0.82-1.09) 08/04/16 14:00 Assessment/Plan #Acute on Chronic Renal insuffiency with Hypernatremia in setting of Fever and decreased oral intake #Fever/CHills #Hypertension ct scan reviewed plan continue ceftriaxone all ct scan images and result noted creatinine coming down rest as per the primary team
--- NOTE | 2016-08-06 17:49 | PN ---
Physical Exam: SUBJECTIVE: Patient seen and examined oob to chair. Feels a little better. OBJECTIVE: Vital Signs Period Temp Pulse Resp BP Sys/Kay Pulse Ox Last 24 Hr 97.7 F-98.7 F 68-74 18-20 137-151/75-88 93-93 GENERAL: The patient is awake, alert, and fully oriented, in no acute distress. HEAD: Normal with no signs of trauma. EYES: PERRL, extraocular movements intact, sclera anicteric, conjunctiva clear. No ptosis. LUNGS: CTA, no wheezing, no rhonchi HEART: Regular rate and rhythm, S1, S2 without murmur, rub or gallop. ABDOMEN: Distended, tympanic, not tender EXTREMITIES: 2+ pulses, warm, well-perfused, no edema. NEUROLOGICAL: bilateral hand tremors, mild asterixis; cranial nerves II through XII grossly intact. Normal speech, gait not observed. Laboratory Results - last 24 hr 08/05/16 08/05/16 08/05/16 15:30 17:53 18:23 WBC RBC Hgb Hct MCV MCHC RDW Plt Count MPV Neutrophils % Lymphocytes % Monocytes % Eosinophils % Basophils % Sodium Potassium Chloride Carbon Dioxide Anion Gap BUN Creatinine Creat Clearance w eGFR POC Glucometer 63 87 Random Glucose Calcium Phosphorus Magnesium 2.3 Total Bilirubin AST ALT Alkaline Phosphatase Total Protein Albumin 08/05/16 08/06/16 08/06/16 21:46 06:03 06:35 WBC 6.5 RBC 4.92 Hgb 13.7 Hct 41.7 MCV 84.6 MCHC 32.9 RDW 14.7 Plt Count 215 MPV 7.8 Neutrophils % 60.8 Lymphocytes % 25.7 Monocytes % 8.2 Eosinophils % 5.0 H Basophils % 0.3 Sodium Potassium Chloride Carbon Dioxide Anion Gap BUN Creatinine Creat Clearance w eGFR POC Glucometer 123 89 Random Glucose Calcium Phosphorus Magnesium Total Bilirubin AST ALT Alkaline Phosphatase Total Protein Albumin 08/06/16 08/06/16 08/06/16 06:35 11:51 16:56 WBC RBC Hgb Hct MCV MCHC RDW Plt Count MPV Neutrophils % Lymphocytes % Monocytes % Eosinophils % Basophils % Sodium 141 Potassium 4.2 Chloride 106 Carbon Dioxide 27 Anion Gap 8 BUN 34 H Creatinine 2.1 H Creat Clearance w eGFR 30.46 POC Glucometer 119 109 Random Glucose 84 Calcium 8.5 Phosphorus 2.8 D Magnesium 2.0 Total Bilirubin 0.4 AST 19 ALT 29 Alkaline Phosphatase 42 L D Total Protein 7.5 Albumin 3.5 Active Medications Generic Name Dose Route Start Last Admin Trade Name Rajiv PRN Reason Stop Dose Admin Amlodipine Besylate 5 mg 08/06/16 10:00 08/06/16 09:54 Norvasc - PO 5 mg DAILY [facility] Administration Aspirin 81 mg 08/05/16 10:00 08/06/16 09:54 Ecotrin - PO 81 mg DAILY [facility] Administration Heparin Sodium (Porcine) 5,000 unit 08/05/16 22:00 08/06/16 09:55 Heparin - SQ 5,000 unit BID [facility] Administration Ceftriaxone Sodium 100 mls @ 200 mls/hr 08/05/16 10:00 08/06/16 10:40 Rocephin 2gm Ivpb (Pre-Docked) IVPB 200 mls/hr DAILY [facility] Administration Sodium Chloride 1,000 mls @ 75 mls/hr 08/06/16 08:57 08/06/16 09:56 Normal Saline - IV 75 mls/hr ASDIR [facility] Administration Insulin Aspart 1 vial 08/05/16 16:30 08/06/16 17:09 Novolog Vial Sliding Scale - SQ Not Given ACHS [facility] Protocol Metoprolol Succinate 50 mg 08/05/16 10:00 08/06/16 09:54 Toprol Xl - PO 50 mg DAILY [facility] Administration Non-Formulary Medication 50 mg 08/05/16 10:00 Mirabegron [Myrbetriq] PO DAILY [facility] Polyethylene Glycol 17 gm 08/05/16 22:00 08/06/16 09:56 Miralax (For Daily Use) - PO 17 grams BID [facility] Administration ASSESSMENT/PLAN 81 year-old man with a PMH of HTN, NIDDM, CKD, s/p tooth extraction x 1 week who presents with subjective fever, chills, weakness, hand tremors, and decreased PO intake x 1 week. Quit smoking 2 months ago. Subjective fever/chills/malaise --symptoms began immediately after dental procedure --r/o endocarditis: 08/06 Echo negative for vegetation --CTAP: evidence of gastrointestinal reflux Aspiration pneumonia --08/06 CT chest: groundglass opacification in b/l upper lobes consistent with aspiration --afebrile, WBC wnl, lungs improved on exam --continue ceftriaxone (day #2) GERD --1/ CTAP: evidence of gastrointestinal reflux --start protonix Acute on chronic kidney injury, resolved --baseline Cr reportedly 2.2 --Cr 3.2 on admission, peaked 5.2, Fena 0.6% suggests prerenal etiology --Cr 2.1 today --continue IV fluids --renal following Hypertension --BP well-controlled --continue Toprol XL 50 and amlodipine 5mg F/E/N Fluids: NS @ 75mL/hr Electrolytes: replete as indicated Nutrition: diabetic low sodium diet DVT prophylaxis: subq heparin, oob, ambulation Dispo: continues to require inpatient care. Full code. Visit type - Emergency Visit Emergency Visit: Yes ED Registration Date: 08/05/16 Care time: The patient presented to the Emergency Department on the above date and was hospitalized for further evaluation of their emergent condition. - New Patient This patient is new to me today: No - Critical Care Critical Care patient: No
[2016-08-06] MEDS: PANTOPRAZOLE 40 MG TABLET (FP) PO SCH (18:48)
[2016-08-07] MEDS: INSULIN SLIDING SCALE (NOVOLOG) 1 VIAL SQ SCH ×4 (06:57→22:34)
[2016-08-07] MEDS: SODIUM CHLORIDE 1,000 ML IV SCH ×3 (07:01→22:21)
[2016-08-07 08:20] LABS: BASOPHIL 0.6 % (0-2.0); EOSINOPHIL 4.7 % (0-4.5); MCHC 32.9 g/dl (32.0-35.9); MEAN CELL VOLUME 84.8 fl (80-96); NEUTROPHILS 61.1 % (42.8-82.8); PLATELET COUNT 208 K/MM3 (134-434); RDW 15.4 % (11.9-15.9); WHITE BLOOD COUNT 6.7 K/mm3 (4.0-10.0)
[2016-08-07 08:37] LABS: ALBUMIN 3.6 g/dl (3.4-5.0); BILIRUBIN,TOTAL 0.5 mg/dL (0.2-1.0); CALCIUM 8.8 mg/dL (8.5-10.1); CREATININE 1.9 mg/dL (0.7-1.3); MAGNESIUM 2.1 mg/dL (1.8-2.4); TOT PROT 7.5 g/dl (6.4-8.2)
[2016-08-07] MEDS ORDERED: PT OWN MED DRAWER 7, Y5N ONE (10:14)
[2016-08-07] MEDS: ASPIRIN COATED 81 MG TABLET.EC PO SCH (10:20)
[2016-08-07] MEDS: amLODIPine BESYLATE 5 MG TABLET (FP) PO SCH (10:20)
[2016-08-07] MEDS: HEPARIN NA (PORCINE) 5,000 UNITS/ML 1ML VIAL SQ SCH ×2 (10:21→22:22)
[2016-08-07] MEDS: PANTOPRAZOLE 40 MG TABLET (FP) PO SCH (10:21)
[2016-08-07] MEDS: CEFTRIAXONE 100 ML IVPB SCH (10:21)
[2016-08-07] MEDS: METOPROLOL SUCCINATE 50 MG TAB.SR.24H (FP) PO SCH (10:30)
--- NOTE | 2016-08-07 12:00 | PN ---
Progress Note (short form) - Note Progress Note: Renal Follow up for MOHSEN on CKD Pt seen and examined at the bedside no acute complaints appetite remains poor has cough no fever good urine output Vital Signs Temperature 98.6 F 08/07/16 06:00 Pulse Rate 63 08/07/16 06:00 Respiratory Rate 20 08/07/16 06:00 Blood Pressure 153/80 08/07/16 06:00 O2 Sat by Pulse Oximetry (%) 96 08/06/16 21:00 Intake & Output 08/04/16 08/05/16 08/06/16 08/07/16 23:59 23:59 23:59 23:59 Intake Total 575 3412 2268 525 Output Total 5849 793 9911 Balance 575 1936 1318 -475 Weight 175 lb 9.6 oz 176 lb 8 oz 176 lb 6 oz Gen: NAD, awake and alert CVS: RRR, No M/R Lungs: Dec BS but no rales Abd: soft, mild distension Ext: No edema, clubbing or cyanosis CBC, BMP 08/07/16 06:25 08/07/16 06:25 Current Medications Amlodipine Besylate (Norvasc -) 5 mg PO DAILY [facility] Last Admin: 08/07/16 10:20 Dose: 5 mg Aspirin (Ecotrin -) 81 mg PO DAILY [facility] Last Admin: 08/07/16 10:20 Dose: 81 mg Heparin Sodium (Porcine) (Heparin -) 5,000 unit SQ BID [facility] Last Admin: 08/07/16 10:21 Dose: 5,000 unit Ceftriaxone Sodium (Rocephin 2gm Ivpb (Pre-Docked)) 100 mls @ 200 mls/hr IVPB DAILY [facility] Last Admin: 08/07/16 10:21 Dose: 200 mls/hr Sodium Chloride (Normal Saline -) 1,000 mls @ 75 mls/hr IV ASDIR [facility] Last Admin: 08/07/16 10:20 Dose: Not Given Insulin Aspart (Novolog Vial Sliding Scale -) 1 vial SQ ACHS [facility] PRN Reason: Protocol Last Admin: 08/07/16 06:57 Dose: Not Given Metoprolol Succinate (Toprol Xl -) 50 mg PO DAILY [facility] Last Admin: 08/07/16 10:30 Dose: 50 mg Non-Formulary Medication (Mirabegron [Myrbetriq]) 50 mg PO DAILY [facility] Pantoprazole Sodium (Protonix -) 40 mg PO DAILY [facility] Last Admin: 08/07/16 10:21 Dose: 40 mg Polyethylene Glycol (Miralax (For Daily Use) -) 17 gm PO BID [facility] Last Admin: 08/06/16 22:03 Dose: 17 grams A/P 81 year old Gentleman with PMhx of CKD (pt not able to provide baseline cr), Hypertension, DM Type 2 who presented with complaints fo fevers/Chills and generalized weakness and found to have MOHSEN with BUN/Cr of 54/3.2. #Non-oligric Acute on Chronic Renal insuffiency with Hypernatremia in setting of Fever and decreased oral intake Renal function continues to improve continue IVF for now PO intake as tolerated #Bladder Stone vs. other lesion check Bladder US today no Blood on UA to suggest cystitis #Fever/CHills ECHO w/o Veg CT showed possible infiltrate RLL #Hypertension Bp acceptable today continue amlodipine and metoprolol Saw Esposito DO
[2016-08-07] MEDS: POLYETHYLENE GLYCOL 3350 119 GM BTL PO SCH ×2 (12:18→22:22)
--- NOTE | 2016-08-07 13:09 | PN ---
Progress Note, Physician History of Present Illness: stable feels much better no complaints - Current Medication List Current Medications: Active Medications Amlodipine Besylate (Norvasc -) 5 mg PO DAILY [facility] Last Admin: 08/07/16 10:20 Dose: 5 mg Aspirin (Ecotrin -) 81 mg PO DAILY [facility] Last Admin: 08/07/16 10:20 Dose: 81 mg Heparin Sodium (Porcine) (Heparin -) 5,000 unit SQ BID [facility] Last Admin: 08/07/16 10:21 Dose: 5,000 unit Ceftriaxone Sodium (Rocephin 2gm Ivpb (Pre-Docked)) 100 mls @ 200 mls/hr IVPB DAILY [facility] Last Admin: 08/07/16 10:21 Dose: 200 mls/hr Sodium Chloride (Normal Saline -) 1,000 mls @ 75 mls/hr IV ASDIR [facility] Last Admin: 08/07/16 10:20 Dose: Not Given Insulin Aspart (Novolog Vial Sliding Scale -) 1 vial SQ ACHS [facility] PRN Reason: Protocol Last Admin: 08/07/16 12:03 Dose: Not Given Metoprolol Succinate (Toprol Xl -) 50 mg PO DAILY [facility] Last Admin: 08/07/16 10:30 Dose: 50 mg Non-Formulary Medication (Mirabegron [Myrbetriq]) 50 mg PO DAILY [facility] Pantoprazole Sodium (Protonix -) 40 mg PO DAILY [facility] Last Admin: 08/07/16 10:21 Dose: 40 mg Polyethylene Glycol (Miralax (For Daily Use) -) 17 gm PO BID [facility] Last Admin: 08/07/16 12:18 Dose: 17 grams - Objective Vital Signs: Vital Signs Temperature 98.6 F 08/07/16 06:00 Pulse Rate 63 08/07/16 06:00 Respiratory Rate 20 08/07/16 06:00 Blood Pressure 153/80 08/07/16 06:00 O2 Sat by Pulse Oximetry (%) 96 08/06/16 21:00 Constitutional: Yes: No Distress, Calm Neck: Yes: Supple Cardiovascular: Yes: Regular Rate and Rhythm Respiratory: Yes: Regular, CTA Bilaterally Gastrointestinal: Yes: Normal Bowel Sounds, Soft Musculoskeletal: Yes: WNL Extremities: Yes: WNL Neurological: Yes: Alert, Oriented Labs: CBC, BMP 08/07/16 06:25 08/07/16 06:25 INR, PTT INR 1.10 (0.82-1.09) 08/04/16 14:00 Assessment/Plan #Acute on Chronic Renal insuffiency with Hypernatremia in setting of Fever and decreased oral intake #Fever/CHills #Hypertension pna ct scan reviewed plan continue ceftriaxone will switch to oral abx tomorrow continue as per renal
--- NOTE | 2016-08-07 15:31 | PN ---
Physical Exam: SUBJECTIVE: Patient seen and examined oob to chair. Patient feels better. Smiling for the first time. OBJECTIVE: Vital Signs Period Temp Pulse Resp BP Sys/Kay Pulse Ox Last 24 Hr 97.7 F-98.9 F 63-73 16-20 121-153/75-94 96 GENERAL: The patient is awake, alert, and fully oriented, in no acute distress. HEAD: Normal with no signs of trauma. EYES: PERRL, extraocular movements intact, sclera anicteric, conjunctiva clear. No ptosis. LUNGS: CTA, no wheezing, no rhonchi HEART: Regular rate and rhythm, S1, S2 without murmur, rub or gallop. ABDOMEN: Distended, tympanic, not tender EXTREMITIES: 2+ pulses, warm, well-perfused, no edema. NEUROLOGICAL: bilateral hand tremors almost completely resolved, no asterixis Laboratory Results - last 24 hr 08/06/16 08/06/16 08/07/16 16:56 22:02 06:25 WBC 6.7 RBC 4.94 Hgb 13.8 Hct 41.9 MCV 84.8 MCHC 32.9 RDW 15.4 Plt Count 208 MPV 8.0 Neutrophils % 61.1 Lymphocytes % 26.2 Monocytes % 7.4 Eosinophils % 4.7 H Basophils % 0.6 Sodium Potassium Chloride Carbon Dioxide Anion Gap BUN Creatinine Creat Clearance w eGFR POC Glucometer 109 83 Random Glucose Calcium Magnesium Total Bilirubin AST ALT Alkaline Phosphatase Total Protein Albumin 08/07/16 08/07/16 08/07/16 06:25 06:55 12:03 WBC RBC Hgb Hct MCV MCHC RDW Plt Count MPV Neutrophils % Lymphocytes % Monocytes % Eosinophils % Basophils % Sodium 139 Potassium 4.2 Chloride 103 Carbon Dioxide 26 Anion Gap 10 BUN 27 H D Creatinine 1.9 H Creat Clearance w eGFR 34.19 POC Glucometer 108 102 Random Glucose 101 D Calcium 8.8 Magnesium 2.1 Total Bilirubin 0.5 D AST 19 ALT 24 Alkaline Phosphatase 44 L Total Protein 7.5 Albumin 3.6 Active Medications Generic Name Dose Route Start Last Admin Trade Name Freq PRN Reason Stop Dose Admin Amlodipine Besylate 5 mg 08/06/16 10:00 08/07/16 10:20 Norvasc - PO 5 mg DAILY [facility] Administration Aspirin 81 mg 08/05/16 10:00 08/07/16 10:20 Ecotrin - PO 81 mg DAILY [facility] Administration Heparin Sodium (Porcine) 5,000 unit 08/05/16 22:00 08/07/16 10:21 Heparin - SQ 5,000 unit BID [facility] Administration Ceftriaxone Sodium 100 mls @ 200 mls/hr 08/05/16 10:00 08/07/16 10:21 Rocephin 2gm Ivpb (Pre-Docked) IVPB 200 mls/hr DAILY [facility] Administration Sodium Chloride 1,000 mls @ 75 mls/hr 08/06/16 08:57 08/07/16 10:20 Normal Saline - IV Not Given ASDIR [facility] Insulin Aspart 1 vial 08/05/16 16:30 08/07/16 12:03 Novolog Vial Sliding Scale - SQ Not Given ACHS [facility] Protocol Metoprolol Succinate 50 mg 08/05/16 10:00 08/07/16 10:30 Toprol Xl - PO 50 mg DAILY [facility] Administration Non-Formulary Medication 50 mg 08/05/16 10:00 Mirabegron [Myrbetriq] PO DAILY [facility] Pantoprazole Sodium 40 mg 08/06/16 18:15 08/07/16 10:21 Protonix - PO 40 mg DAILY [facility] Administration Polyethylene Glycol 17 gm 08/05/16 22:00 08/07/16 12:18 Miralax (For Daily Use) - PO 17 grams BID [facility] Administration ASSESSMENT/PLAN 81 year-old man with a PMH of HTN, NIDDM, CKD, s/p tooth extraction x 1 week who presents with subjective fever, chills, weakness, hand tremors, and decreased PO intake x 1 week. Quit smoking 2 months ago. Subjective fever/chills/malaise --symptoms began immediately after dental procedure; endocarditis considered , 08/06 echo negative for vegetation Aspiration pneumonia --08/06 CT chest: groundglass opacification in b/l upper lobes consistent with aspiration --afebrile, WBC wnl, lungs improved on exam --continue ceftriaxone (day #3) GERD --08/06 CTAP: evidence of gastrointestinal reflux --continue protonix Acute on chronic kidney injury, resolved Metabolic encephalopathy --baseline Cr 2.2; 3.2 on admission, peaked 5.2,today 1.9 --hand tremors and asterixis seen on admission has almost completely resolved --continue IV fluids --US bladder pending --renal following Hypertension --BP well-controlled --continue Toprol XL 50 and amlodipine 5mg F/E/N Fluids: NS @ 75mL/hr Electrolytes: replete as indicated Nutrition: diabetic low sodium diet DVT prophylaxis: subq heparin, oob, ambulation Dispo: continues to require inpatient care. Full code. Visit type - Emergency Visit Emergency Visit: Yes ED Registration Date: 08/05/16 Care time: The patient presented to the Emergency Department on the above date and was hospitalized for further evaluation of their emergent condition. - New Patient This patient is new to me today: No - Critical Care Critical Care patient: No
[2016-08-08] MEDS: INSULIN SLIDING SCALE (NOVOLOG) 1 VIAL SQ SCH ×2 (06:22→11:07)
[2016-08-08 08:11] LABS: BASOPHIL 0.5 % (0-2.0); EOSINOPHIL 4.8 % (0-4.5); MCH 28.3 pg (25.7-33.7); MCHC 33.4 g/dl (32.0-35.9); MEAN CELL VOLUME 84.7 fl (80-96); NEUTROPHILS 58.5 % (42.8-82.8); PLATELET COUNT 205 K/MM3 (134-434); RDW 14.8 % (11.9-15.9); WHITE BLOOD COUNT 5.9 K/mm3 (4.0-10.0)
[2016-08-08 08:37] LABS: CALCIUM 8.2 mg/dL (8.5-10.1); CREATININE 1.8 mg/dL (0.7-1.3); MAGNESIUM 2.2 mg/dL (1.8-2.4); PHOSPHOROUS 2.6 mg/dL (2.5-4.9)
[2016-08-08] MEDS: ASPIRIN COATED 81 MG TABLET.EC PO SCH (09:41)
[2016-08-08] MEDS: amLODIPine BESYLATE 5 MG TABLET (FP) PO SCH (09:41)
[2016-08-08] MEDS: SODIUM CHLORIDE 1,000 ML IV SCH (09:41)
[2016-08-08] MEDS: CEFTRIAXONE 100 ML IVPB SCH (09:41)
[2016-08-08] MEDS: METOPROLOL SUCCINATE 50 MG TAB.SR.24H (FP) PO SCH (09:41)
[2016-08-08] MEDS: PANTOPRAZOLE 40 MG TABLET (FP) PO SCH (09:41)
[2016-08-08] MEDS: POLYETHYLENE GLYCOL 3350 119 GM BTL PO SCH (09:42)
[2016-08-08] MEDS: HEPARIN NA (PORCINE) 5,000 UNITS/ML 1ML VIAL SQ SCH (09:42)
[2016-08-08] MEDS ORDERED: TAMSULOSIN HCL 0.4 MG CAP.ER.24H (FP) PO SCH (13:45)
[2016-08-08 15:39] VITALS: BP 107/67; PULSE 78; TEMP 97.9
--- NOTE | 2016-08-08 16:38 | PN ---
Progress Note, Physician History of Present Illness: patient doing well no complaints - Current Medication List Current Medications: Active Medications Amlodipine Besylate (Norvasc -) 5 mg PO DAILY [facility] Last Admin: 08/08/16 09:41 Dose: 5 mg Aspirin (Ecotrin -) 81 mg PO DAILY [facility] Last Admin: 08/08/16 09:41 Dose: 81 mg Heparin Sodium (Porcine) (Heparin -) 5,000 unit SQ BID [facility] Last Admin: 08/08/16 09:42 Dose: 5,000 unit Ceftriaxone Sodium (Rocephin 2gm Ivpb (Pre-Docked)) 100 mls @ 200 mls/hr IVPB DAILY [facility] Last Admin: 08/08/16 09:41 Dose: 200 mls/hr Sodium Chloride (Normal Saline -) 1,000 mls @ 75 mls/hr IV ASDIR [facility] Last Admin: 08/08/16 09:41 Dose: Not Given Insulin Aspart (Novolog Vial Sliding Scale -) 1 vial SQ ACHS [facility] PRN Reason: Protocol Last Admin: 08/08/16 11:07 Dose: Not Given Metoprolol Succinate (Toprol Xl -) 50 mg PO DAILY [facility] Last Admin: 08/08/16 09:41 Dose: 50 mg Non-Formulary Medication (Mirabegron [Myrbetriq]) 50 mg PO DAILY [facility] Pantoprazole Sodium (Protonix -) 40 mg PO DAILY [facility] Last Admin: 08/08/16 09:41 Dose: 40 mg Polyethylene Glycol (Miralax (For Daily Use) -) 17 gm PO BID [facility] Last Admin: 08/08/16 09:42 Dose: 17 grams Tamsulosin HCl (Flomax -) 0.4 mg PO DAILY@0830 [facility] Last Admin: 08/08/16 15:59 Dose: 0.4 mg - Objective Vital Signs: Vital Signs Temperature 97.9 F 08/08/16 15:37 Pulse Rate 78 08/08/16 15:37 Respiratory Rate 18 08/08/16 15:37 Blood Pressure 107/67 08/08/16 15:37 O2 Sat by Pulse Oximetry (%) 96 08/08/16 10:00 Constitutional: Yes: No Distress, Calm Neck: Yes: Supple Cardiovascular: Yes: Regular Rate and Rhythm Respiratory: Yes: Regular, CTA Bilaterally Gastrointestinal: Yes: Normal Bowel Sounds, Soft Musculoskeletal: Yes: WNL Extremities: Yes: WNL Neurological: Yes: Alert, Oriented Psychiatric: Yes: Alert Labs: CBC, BMP 08/08/16 06:35 08/08/16 06:35 INR, PTT INR 1.10 (0.82-1.09) 08/04/16 14:00 Assessment/Plan #Acute on Chronic Renal insuffiency with Hypernatremia in setting of Fever and decreased oral intake #Fever/CHills #Hypertension pna ct scan reviewed plan patient to take augmentin 500mg twice a day for 5 days
--- NOTE | 2016-08-08 16:44 | PN ---
Progress Note (short form) - Note Progress Note: Renal Follow up for MOHSEN on CKD Pt seen and examined at the bedside no acute complaints feels better today for discharge Vital Signs Temperature 97.9 F 08/08/16 15:37 Pulse Rate 78 08/08/16 15:37 Respiratory Rate 18 08/08/16 15:37 Blood Pressure 107/67 08/08/16 15:37 O2 Sat by Pulse Oximetry (%) 96 08/08/16 10:00 Intake & Output 08/05/16 08/06/16 08/07/16 08/08/16 23:59 23:59 23:59 23:59 Intake Total 3412 2268 1975 1525 Output Total 9619 973 6138 Balance 1936 4204 440 0214 Weight 176 lb 8 oz 176 lb 6 oz 175 lb 3.2 oz Gen: NAD, awake and alert CVS: RRR, No M/R Lungs: Dec BS but no rales Abd: soft, mild distension Ext: No edema, clubbing or cyanosis CBC, BMP 08/08/16 06:35 08/08/16 06:35 Current Medications Amlodipine Besylate (Norvasc -) 5 mg PO DAILY [facility] Last Admin: 08/08/16 09:41 Dose: 5 mg Aspirin (Ecotrin -) 81 mg PO DAILY [facility] Last Admin: 08/08/16 09:41 Dose: 81 mg Heparin Sodium (Porcine) (Heparin -) 5,000 unit SQ BID [facility] Last Admin: 08/08/16 09:42 Dose: 5,000 unit Ceftriaxone Sodium (Rocephin 2gm Ivpb (Pre-Docked)) 100 mls @ 200 mls/hr IVPB DAILY [facility] Last Admin: 08/08/16 09:41 Dose: 200 mls/hr Sodium Chloride (Normal Saline -) 1,000 mls @ 75 mls/hr IV ASDIR [facility] Last Admin: 08/08/16 09:41 Dose: Not Given Insulin Aspart (Novolog Vial Sliding Scale -) 1 vial SQ ACHS [facility] PRN Reason: Protocol Last Admin: 08/08/16 11:07 Dose: Not Given Metoprolol Succinate (Toprol Xl -) 50 mg PO DAILY [facility] Last Admin: 08/08/16 09:41 Dose: 50 mg Non-Formulary Medication (Mirabegron [Myrbetriq]) 50 mg PO DAILY [facility] Pantoprazole Sodium (Protonix -) 40 mg PO DAILY [facility] Last Admin: 08/08/16 09:41 Dose: 40 mg Polyethylene Glycol (Miralax (For Daily Use) -) 17 gm PO BID [facility] Last Admin: 08/08/16 09:42 Dose: 17 grams Tamsulosin HCl (Flomax -) 0.4 mg PO DAILY@0830 [facility] Last Admin: 08/08/16 15:59 Dose: 0.4 mg A/P 81 year old Gentleman with PMhx of CKD (pt not able to provide baseline cr), Hypertension, DM Type 2 who presented with complaints fo fevers/Chills and generalized weakness and found to have MOHSEN with BUN/Cr of 54/3.2. #Non-oligric Acute on Chronic Renal insuffiency with Hypernatremia in setting of Fever and decreased oral intake Renal function now improved to baseline d/c IVF advised to avoid nsaids, contrast, fleet enemas pt traveling to [facility] for 4 months. Advised to have repeat blood work done there in 1->2 weeks to follow up with Dr. Cammie Jackman upon return #Urinary Retention/BPH Start Flomax daily #Fever/CHills ECHO w/o Veg CT showed possible infiltrate RLL to finish course of oral abx as outpatient #Hypertension Bp acceptable today continue amlodipine and metoprolol Saw Esposito DO
--- NOTE | 2016-09-03 13:57 | DS ---
Physical Exam: SUBJECTIVE: Patient seen and examined OBJECTIVE: Vital Signs Temperature 97.9 F 08/08/16 15:37 Pulse Rate 78 08/08/16 15:37 Respiratory Rate 18 08/08/16 15:37 Blood Pressure 107/67 08/08/16 15:37 O2 Sat by Pulse Oximetry (%) 96 08/08/16 10:00 PHYSICAL EXAM GENERAL: The patient is awake, alert, and fully oriented, in no acute distress. HEAD: Normal with no signs of trauma. EYES: PERRL, extraocular movements intact, sclera anicteric, conjunctiva clear. No ptosis. LUNGS: CTA, no wheezing, no rhonchi HEART: Regular rate and rhythm, S1, S2 without murmur, rub or gallop. ABDOMEN: Distended, tympanic, not tender EXTREMITIES: 2+ pulses, warm, well-perfused, no edema. NEUROLOGICAL: bilateral hand tremors almost completely resolved, no asterixis LABS CBCD WBC 5.9 K/mm3 (4.0-10.0) 08/08/16 06:35 RBC 4.89 M/mm3 (4.00-5.60) 08/08/16 06:35 Hgb 13.9 GM/dL (11.7-16.9) 08/08/16 06:35 Hct 41.5 % (35.4-49) 08/08/16 06:35 MCV 84.7 fl (80-96) 08/08/16 06:35 MCHC 33.4 g/dl (32.0-35.9) 08/08/16 06:35 RDW 14.8 % (11.9-15.9) 08/08/16 06:35 Plt Count 205 K/MM3 (134-434) 08/08/16 06:35 MPV 8.0 fl (7.5-11.1) 08/08/16 06:35 CMP Sodium 140 mmol/L (136-145) 08/08/16 06:35 Potassium 4.0 mmol/L (3.5-5.1) 08/08/16 06:35 Chloride 106 mmol/L (98-107) 08/08/16 06:35 Carbon Dioxide 26 mmol/L (21-32) 08/08/16 06:35 Anion Gap 8 (8-16) 08/08/16 06:35 BUN 23 mg/dL (7-18) H 08/08/16 06:35 Creatinine 1.8 mg/dL (0.7-1.3) H 08/08/16 06:35 Creat Clearance w eGFR 34.19 (>60) 08/07/16 06:25 Calcium 8.2 mg/dL (8.5-10.1) L 08/08/16 06:35 Total Bilirubin 0.5 mg/dL (0.2-1.0) D 08/07/16 06:25 AST 19 U/L (15-37) 08/07/16 06:25 ALT 24 U/L (12-78) 08/07/16 06:25 Alkaline Phosphatase 44 U/L (45-117) L 08/07/16 06:25 Total Protein 7.5 g/dl (6.4-8.2) 08/07/16 06:25 Albumin 3.6 g/dl (3.4-5.0) 08/07/16 06:25 HOSPITAL COURSE: Date of Admission:08/05/16 Date of Discharge: 08/08/16 81 year-old man with a PMH of HTN, NIDDM, CKD, s/p tooth extraction x 1 week who presents with subjective fever, chills, weakness, hand tremors, and decreased PO intake x 1 week. Quit smoking 2 months ago. Subjective fever/chills/malaise --symptoms began immediately after dental procedure; endocarditis considered , 08/06 echo negative for vegetation Aspiration pneumonia --08/06 CT chest: groundglass opacification in b/l upper lobes consistent with aspiration --afebrile, WBC wnl, lungs improved on exam --treated inpatient with IV ceftriaxone x 4 doses; discharged with prescription for augmentin for another 6 days of treatment GERD --08/06 CTAP: evidence of gastrointestinal reflux --continued protonix Acute on chronic kidney injury, resolved Metabolic encephalopathy --baseline Cr 2.2; 3.2 on admission, peaked 5.2, trending down 1.9 --hand tremors and asterixis seen on admission has almost completely resolved Hypertension --BP well-controlled --continued Toprol XL 50 and amlodipine 5mg Minutes to complete discharge: 35 Discharge Summary Reason For Visit: ACUTE RENAL FAILURE,DEHYDRATION Condition: Stable - Instructions Diet, Activity, Other Instructions: Two prescriptions have been sent to your pharmacy. One is for an antibiotic and the other is an antacid-type medication for your chronic esophageal reflux. Take these medications as directed. It is important you follow up with Dr. Dupont within one week of your discharge. You should also follow up with the kidney doctor you saw at the hospital, Dr. Saw Esposito. His contact information is enclosed. Return to the emergency department for any new or worsening symptoms. Referrals: Jada Benson MD [Staff Physician] - Lauren Dupont MD [Primary Care Provider] - 1 Week Saw Esposito MD [Staff Physician] - 2 Weeks Disposition: HOME - Home Medications Comprehensive Discharge Medication List: Ambulatory Orders Aspirin Coated [Ecotrin -] 81 mg PO DAILY 08/31/13 Metoprolol Succinate [Toprol XL -] 50 mg PO DAILY 08/31/13 Amlodipine Besylate 5 mg PO DAILY 07/30/16 Glimepiride [Amaryl -] 4 mg PO DAILY 07/30/16 Mirabegron [Myrbetriq] 50 mg PO DAILY 07/30/16 Sitagliptin Phosphate [Januvia] 50 mg PO DAILY 07/30/16 Amoxicillin/Potassium Clav [Augmentin 500-125 Tablet] 1 each PO BID #12 tablet 08/08/16 Pantoprazole Sodium [Protonix -] 40 mg PO DAILY #30 tablet.ec 08/08/16 This patient is new to me today: No Emergency Visit: Yes ED Registration Date: 08/05/16 Care time: The patient presented to the Emergency Department on the above date and was hospitalized for further evaluation of their emergent condition. Critical Care patient: No - Discharge Referral Referred to [facility] No
== END 2016-08-08 16:59 | disposition home or self-care (01) | DRG 682 ==
LOC: JER 13:23 → JERBED 17:26 → UNDOADMOB 17:26 → JERBED 18:43 → J5S 18:43 → OBSVTOIN 08-05 10:05 → JERBED 08-05 10:05 → J5S 08-05 10:05
PROVIDERS: ADMIT Internal Medicine; ATTEND Nurse Practitioner Acute Care
DX: N17.9 Acute kidney failure, unspecified (principal); J69.0 Pneumonitis due to inhalation of food and vomit; G93.41 Metabolic encephalopathy; E87.0 Hyperosmolality and hypernatremia; E87.2 Acidosis; I12.9 Hypertensive chronic kidney disease with stage 1 through stage 4 chronic kidney disease, or unspecified chronic kidney disease; N18.9 Chronic kidney disease, unspecified; R33.9 Retention of urine, unspecified; N40.0 Benign prostatic hyperplasia without lower urinary tract symptoms; E11.9 Type 2 diabetes mellitus without complications; K21.9 Gastro-esophageal reflux disease without esophagitis
CPT/HCPCS: 36415; 70450-TC; 71020-TC; 71250-TC; 74176-TC; 76856-TC; 80048; 80053; 81003; 81015; 82009; 82140; 82570; 83605; 83735; 83880; 84100; 84156; 84300; 84550; 85025; 85610; 87040; 87086; 87205; 87804; 87899; 93005; 93010; 93306-TC; 97116-GP; 97161-GP; 99284-25; J1644

== ENCOUNTER 2017-12-03 09:15 | Emergency (ER) | payer OTHER ==
[2017-12-03 09:21] VITALS: BP 139/74; PULSE 60; TEMP 98.1; BMI 29.8
--- NOTE | 2017-12-03 09:52 | PDOC ---
History of Present Illness - General Chief Complaint: Nasal Bleeding Stated Complaint: NOSE BLEED Time Seen by Provider: 12/03/17 09:24 History Source: Patient, Family Exam Limitations: No Limitations - History of Present Illness Initial Comments: 12/03/17 09:45 A 2-year-old male history of hypertension diabetes currently on baby aspirin here today complaining of a nosebleed. Patient states started night prior had one episode of nosebleed which resolved in the left Sweeney. This morning he blew his nose at some Cesar had large blood following the left nare was bleeding for several minutes seems to have stopped on arrival to the ED. Patient denies any chest pain or shortness of breath. No feelings of lightheadedness or dizziness no dark stool or other problems with bleeding recently Past History - Past Medical History Allergies/Adverse Reactions: Allergies Allergy/AdvReac Type Severity Reaction Status Date / Time No Known Drug Allergies Allergy Verified 12/03/17 09:15 Home Medications: Ambulatory Orders Aspirin Coated [Ecotrin -] 81 mg PO DAILY 08/31/13 Metoprolol Succinate [Toprol XL -] 50 mg PO DAILY 08/31/13 Amlodipine Besylate 5 mg PO DAILY 07/30/16 Mirabegron [Myrbetriq] 50 mg PO DAILY 07/30/16 Sitagliptin Phosphate [Januvia] 50 mg PO DAILY 07/30/16 Allopurinol [Zyloprim -] 100 mg PO DAILY 12/03/17 Atorvastatin Ca [Lipitor] 10 mg PO HS 12/03/17 Glipizide [Glipizide Xl] 10 mg PO DAILY 12/03/17 COPD: No Diabetes: Yes Disorders: Yes (RENAL INSUFFICIENCY) HTN: Yes Hypercholesterolemia: Yes - Suicide/Smoking/Psychosocial Hx Smoking History: Former smoker Have you smoked in the past 12 months: Yes Number of Cigarettes Smoked Daily: 1 Information on smoking cessation initiated: No Hx Alcohol Use: Yes Drug/Substance Use Hx: No Substance Use Type: Alcohol Hx Substance Use Treatment: No Review of Systems - Review of Systems Constitutional: No: Chills, Diaphoresis HEENTM: Yes: Nose Bleeding. No: Eye Pain Respiratory: No: Cough Cardiac (ROS): No: Chest Pain, Edema Musculoskeletal: No: Back Pain, Gout Integumentary: No: Bruising, Change in Color All Other Systems: Reviewed and Negative *Physical Exam - Vital Signs Last Vital Signs Temp Pulse Resp BP Pulse Ox 98.1 F 60 18 139/74 97 12/03/17 09:15 12/03/17 09:15 12/03/17 09:15 12/03/17 09:15 12/03/17 09:15 - Physical Exam General Appearance: Yes: Appropriately Dressed HEENT: positive: [place], Pharynx Normal, Other (dried blood left nare anterior septum no active bleeding. ) Neck: positive: Trachea midline Respiratory/Chest: positive: Lungs Clear, Normal Breath Sounds Cardiovascular: positive: Regular Rhythm, Regular Rate, S1, S2 Musculoskeletal: positive: Normal Inspection Extremity: positive: Normal Capillary Refill, Normal Inspection Integumentary: positive: Normal Color, Dry, Warm Medical Decision Making - Medical Decision Making 12/03/17 09:49 anterior left sided epistaxis. no active bleeding. pt given instructions regarding stopping bleeding. told to apply bacitracin to anerior septum nightly. [facility] home Aidan for fu. *DC/Admit/Observation/Transfer Diagnosis at time of Disposition: Epistaxis - Discharge Dispostion Disposition: HOME Condition at time of disposition: Improved - Referrals Referrals: Von Bermudez MD [Staff Physician] - - Patient Instructions Printed Discharge Instructions: Nosebleed Additional Instructions: Follow-up with regular doctor. For repeat bleeding apply pressure to the lower portion of the nose as shown in the ED for 10 minutes. For bleeding is not controlled with compression for 10-15 minutes seek repeat evaluation. He should apply bacitracin ointment to the inner inside portion of the nose nightly to prevent itching and recurrent bleeding. Follow-up Dr. Bermudez ear nose and throat doctor as needed call to schedule see referral information for phone number - Post Discharge Activity
== END 2017-12-03 09:55 | disposition home or self-care (01) ==
LOC: FER 09:15
DX: R04.0 Epistaxis (principal); E11.9 Type 2 diabetes mellitus without complications; I10 Essential (primary) hypertension; Z79.82 Long term (current) use of aspirin; Z87.891 Personal history of nicotine dependence
CPT/HCPCS: 99281-25

== ENCOUNTER 2017-12-08 08:25 | Inpatient (IN) | payer OTHER ==
[2017-12-08] MEDS ORDERED: SODIUM CHLORIDE 1,000 ML IV STA ×3 (08:59→15:20)
[2017-12-08] MEDS ORDERED: VANCOMYCIN 1,000 MG in DEXTROSE 5%-WATER - 250 ML IVPB ONE (09:34)
[2017-12-08] MEDS ORDERED: CLINDAMYCIN 900 MG PREMIX IVPB 900 MG/50 ML BAG IVPB ONE ×2 (09:34→09:52)
[2017-12-08 09:43] LABS: BASO % 0.5 % (0-2.0); EOS % 2.2 % (0-4.5); HEMATOCRIT 43.9 % (35.4-49); HEMOGLOBIN 14.3 GM/dL (11.7-16.9); LYMPH % 23.1 % (8-40); MCH 28.2 pg (25.7-33.7); MCHC 32.5 g/dl (32.0-35.9); MEAN CELL VOLUME 86.7 fl (80-96); MEAN PLT VOLUME 7.6 fl (7.5-11.1); MONO % 9.7 % (3.8-10.2); NEUT % 64.5 % (42.8-82.8); PLATELET COUNT 215 K/MM3 (134-434); RBC 5.06 M/mm3 (4.00-5.60); RDW 15.7 % (11.9-15.9); WHITE BLOOD COUNT 8.3 K/mm3 (4.0-10.0)
--- NOTE | 2017-12-08 09:51 | PDOC ---
History of Present Illness - General Chief Complaint: Respiratory Stated Complaint: FEVER, CONFUSION Time Seen by Provider: 12/08/17 08:46 History Source: Patient Exam Limitations: No Limitations - History of Present Illness Initial Comments: 12/08/17 09:46 Patient is an 82M with history of HTN, DM, and enlarged prostate here today complaining of fever. Family states that he had a fever to 103 this morning and that he took tylenol before coming into the ER. Family reports that he was confused when he had a fever to 103. Patient had a nosebleed 5 days ago and was packed by ENT (Dr Cristiano Castillo). Patient first had a fever 3 days ago. Patient was prescribed amoxicillin and reports taking it. Patient denies cough, chest pain and shortness of breath. Patient denies dysuria, urinary frequency. Patient denies abdominal pain, nausea, vomiting. Patient does state that he has a headache over his left superior aspect of the head. Past History - Past Medical History Allergies/Adverse Reactions: Allergies Allergy/AdvReac Type Severity Reaction Status Date / Time No Known Drug Allergies Allergy Verified 12/08/17 08:30 Home Medications: Ambulatory Orders Aspirin Coated [Ecotrin -] 81 mg PO DAILY 08/31/13 Metoprolol Succinate [Toprol XL -] 50 mg PO DAILY 08/31/13 Amlodipine Besylate 5 mg PO DAILY 07/30/16 Mirabegron [Myrbetriq] 50 mg PO DAILY 07/30/16 Sitagliptin Phosphate [Januvia] 50 mg PO DAILY 07/30/16 Allopurinol [Zyloprim -] 100 mg PO DAILY 12/03/17 Atorvastatin Ca [Lipitor] 10 mg PO HS 12/03/17 Glipizide [Glipizide Xl] 10 mg PO DAILY 12/03/17 Amoxicillin - [Amoxicillin 875mg Tablet -] 875 mg PO BID 12/08/17 COPD: No Diabetes: Yes Disorders: Yes (RENAL INSUFFICIENCY) HTN: Yes Hypercholesterolemia: Yes - Suicide/Smoking/Psychosocial Hx Smoking History: Never smoked Have you smoked in the past 12 months: Yes Number of Cigarettes Smoked Daily: 1 Hx Alcohol Use: No Drug/Substance Use Hx: No Substance Use Type: Alcohol Hx Substance Use Treatment: No Review of Systems - Review of Systems Comments:: 12/08/17 09:48 GENERAL/CONSTITUTIONAL: Positive for fever and chills. No weakness. HEAD, EYES, EARS, NOSE AND THROAT: No change in vision. No sore throat. CARDIOVASCULAR: No chest pain or shortness of breath RESPIRATORY: No cough, wheezing, or hemoptysis. GASTROINTESTINAL: No nausea, vomiting, diarrhea or constipation. GENITOURINARY: No dysuria, frequency, or change in urination. MUSCULOSKELETAL: No joint or muscle swelling or pain. No neck or back pain. SKIN: No rash NEUROLOGIC: Positive for headache and confusion. Negative for vertigo, loss of consciousness, or change in strength/sensation. HEMATOLOGIC/LYMPHATIC: No anemia, easy bleeding, or history of blood clots. ALLERGIC/IMMUNOLOGIC: No hives or skin allergy. *Physical Exam - Vital Signs Last Vital Signs Temp Pulse Resp BP Pulse Ox 99.5 F 78 18 127/67 93 L 12/08/17 08:28 12/08/17 08:28 12/08/17 08:28 12/08/17 08:28 12/08/17 08:28 - Physical Exam Comments: 12/08/17 09:51 GENERAL: Awake, alert, and fully oriented, in no acute distress HEAD: No signs of trauma, normocephalic, atraumatic EYES: PERRLA, EOMI, sclera anicteric, conjunctiva clear ENT: Packed left nare, clear oropharynx NECK: Normal ROM, supple, no lymphadenopathy, JVD, or masses LUNGS: No distress, speaks full sentences, clear to auscultation bilaterally HEART: Regular rate and rhythm, normal S1 and S2, no murmurs, rubs or gallops, peripheral pulses normal and equal bilaterally. ABDOMEN: Soft, nontender, normoactive bowel sounds. No guarding, no rebound. No masses EXTREMITIES: Normal inspection, Normal range of motion, no edema. No clubbing or cyanosis. NEUROLOGICAL: Cranial nerves II through XII grossly intact. Normal speech, normal gait, no focal sensorimotor deficits SKIN: Warm, Dry, normal turgor, no rashes or lesions noted. No palm/sole rash. ED Treatment Course - LABORATORY CBC & Chemistry Diagram: 12/08/17 09:23 12/08/17 09:23 - RADIOLOGY Radiology Studies Ordered: Category Date Time Status CHEST X-RAY PORTABLE* [RAD] Stat Radiology 12/08/17 08:59 Completed Medical Decision Making - Medical Decision Making 12/08/17 09:52 Patient is 82M with history of HTN, DM, and enlarged prostate here today complaining of fever. No source of infection obviously present other than packing. Normal vital signs now, afebrile, but patient just took tylenol. Does not meet full criteria for toxic shock, but am concerned given patient's history. Will cover empirically with clindamycin and vancomycin. Patient will be admitted due to age and failed outpatient antibiotic therapy. Also considering as other source of fever: UTI, pneumonia, viral syndrome. Will do infectious workup to look for other possible causes of fever. CXR shows left lower lobe atlectasis, stable when compared to x-ray from July. 12/08/17 10:41 Laboratory Tests 12/08/17 12/08/17 12/08/17 09:23 09:23 09:23 WBC 8.3 D Hgb 14.3 Plt Count 215 INR 1.05 Sodium 133 L BUN 37 H D Creatinine 2.9 H D Lactic Acid Troponin I Urine Nitrite Ur Leukocyte Esterase Urine WBC (Auto) 12/08/17 12/08/17 12/08/17 09:23 09:23 09:45 WBC Hgb Plt Count INR Sodium BUN Creatinine Lactic Acid 1.4 Troponin I < 0.02 Urine Nitrite Negative Ur Leukocyte Esterase 1+ H Urine WBC (Auto) 10 CBC normal. INR normal. CMP shows MOHSEN with Cr of 2.9 up from last of 1.8 in . Lactic acid normal. Troponin normal. UA weakly positive. Given liter of fluid and ceftriaxone added to antibiotics. 12/08/17 11:09 EKG shows normal sinus rhythm, no st elevations/depressions. No significant t wave abnormalities. Normal QRS/PA/QTc intervals. *DC/Admit/Observation/Transfer Diagnosis at time of Disposition: Fever, MOHSEN (acute kidney injury) - Discharge Dispostion Condition at time of disposition: Stable Decision to Admit order: Yes - Referrals Referrals: Lauren Dupont MD [Primary Care Provider] - - Patient Instructions - Post Discharge Activity
[2017-12-08] MEDS ORDERED: VANCOMYCIN 1 GRAM (PRE-DOCKED) 1,000 MG/250 ML BAG IVPB ONE (09:52)
[2017-12-08 10:01] LABS: URINE APPEARANCE CLEAR; URINE BILIRUBIN NEGATIVE (<2.0 mg/dL); URINE COLOR YELLOW; URINE GLUCOSE (UA) NEGATIVE (NEGATIVE); URINE KETONE NEGATIVE (NEGATIVE); URINE NITRITE NEGATIVE (NEGATIVE); URINE UROBILINOGEN NEGATIVE mg/dL (0.2-1.0)
[2017-12-08 10:03] LABS: URINE LEUK ESTERASE 1+ (NEGATIVE); URINE PROTEIN 2+ (NEGATIVE)
[2017-12-08 10:04] LABS: URINE HYALINE CAST 3 /lpf; URINE MUCUS RARE
[2017-12-08 10:04] LABS: INR 1.05 (0.82-1.09); PROTHROMBIN TIME (PATIENT) 11.9 SEC (9.7-13.0)
[2017-12-08 10:06] LABS: ACTIVATED PTT 30.3 SECONDS (26.9-34.4)
--- NOTE | 2017-12-08 10:11 | PDOC ---
Attending Attestation - HPI HPI: 12/08/17 10:14 The patient is an 82 year male with a significant PMH of diabetes and HTN who presents to the emergency department for evaluation of fever (T. max 103F this morning). He reports first developing a fever approximately 3 days ago which was higher this morning with associated confusion. The patient was evaluated for epistaxis on 12/03/17 and was discharged home, after which he notes following up with ENT on the same day and having his nose packed. He reports being started on Amoxicillin with which he has been compliant. The patient denies chest pain or shortness of breath. He denies nausea, vomiting, or diarrhea. He denies rash. Allergies: NKDA PCP: Dr. Dupont - Physicial Exam PE: 12/08/17 10:18 GENERAL: Awake, alert, and fully oriented, in no acute distress HEAD: No signs of trauma EYES: PERRLA, EOMI, sclera anicteric, conjunctiva clear ENT: (+) Left nare packed with Xeroform gauze. No drainage or bleeding. Auricles normal inspection, Moist mucosa NECK: Normal ROM, supple, no JVD, or masses LUNGS: Breath sounds equal, clear to auscultation bilaterally. No wheezes, and no crackles HEART: Regular rate and rhythm, normal S1 and S2, no murmurs, rubs or gallops ABDOMEN: Soft, nontender, normoactive bowel sounds. No guarding, no rebound. No masses EXTREMITIES: Normal range of motion, no edema. No clubbing or cyanosis. No cords, erythema, or tenderness NEUROLOGICAL: Alert and oriented x 3. Moves all extremities. Face is symmetric. SKIN: Warm, Dry, normal turgor, no rashes or lesions noted. <Theodore Bruno - Last Filed: 12/08/17 10:18> - ED Attending Attestation I have performed the following: I have examined & evaluated the patient, The case was reviewed & discussed with the resident, I agree w/resident's findings & plan, Exceptions are as noted - Medical Decision Making 12/08/17 10:09 A 2-year-old male with a history of diabetes hypertension recent epistaxis status post nasal packing 5 days ago here with fever. On exam nasal packing is in place in left Sweeney appears to be packed with Xeroform gauze Differential includes fever from other source such as pneumonia or UTI, toxic shock or staph infection from packing either staph or strep. Plan remove the packing discussed with ENT Dr. Castillo will likely cover with antibiotics for gram- positive due to patient being diabetic therefore immunocompromise will admit for observation for 24 hours with IV antibiotics <Dede Enrique - Last Filed: 12/08/17 10:34> Heart Score/ECG Review #1 General ECG Interpretation: Sinus Rhythm, Normal Rate (69), Normal Intervals, No acute ischemic changes <Dede Enrique - Last Filed: 12/08/17 10:34>
[2017-12-08 10:13] LABS: ALBUMIN 3.7 g/dl (3.4-5.0); ANION GAP 6 (8-16); BLOOD UREA NITROGEN 37 mg/dL (7-18); CALCIUM 8.8 mg/dL (8.5-10.1); CHLORIDE 101 mmol/L (98-107); CO2 26 mmol/L (21-32); CREATININE 2.9 mg/dL (0.7-1.3); GLUCOSE,RANDOM 264 mg/dL (74-106); POTASSIUM 4.9 mmol/L (3.5-5.1); SGOT/AST 23 U/L (15-37); SGPT/ALT 38 U/L (12-78); SODIUM 133 mmol/L (136-145)
[2017-12-08] MEDS ORDERED: CEFTRIAXONE 1,000 MG in DEXTROSE 5%-WATER - 50 ML IVPB ONE (10:13)
[2017-12-08 10:16] LABS: ALK PHOS 43 U/L (45-117); BILIRUBIN,TOTAL 0.7 mg/dL (0.2-1.0); TOT PROT 7.9 g/dl (6.4-8.2)
[2017-12-08] MEDS ORDERED: CEFTRIAXONE 1 GM/50 ML BAG ONE (10:19)
[2017-12-08] MEDS ORDERED: MORPHINE SULFATE 10 MG/1 ML *VIAL ONE (10:23)
--- NOTE | 2017-12-08 12:51 | CON.ID ---
Consult Consult Specialty:: infectious diseases Reason for Consultation:: sepsis,fever - History of Present Illness Chief Complaint: not feeling well,fever History of Present Illness: 82 year male with a significant PMH of diabetes and HTN who came to the emergency department for evaluation of fever (T. max 103F this morning). He reports first developing a fever approximately 3 days ago which was higher this morning with associated confusion. The patient was evaluated for epistaxis on and was discharged home, after which he notes following up with ENT on the same day and having his nose packed. He reports being started on Amoxicillin with which he has been compliant. The patient denies chest pain or shortness of breath. He denies nausea, vomiting, or diarrhea. He denies rash. patients daughter in law with him who is giving the history and according to him patient has been weak also and having fever with chills patients nasal packing was removed in the emergency room according to the daughter in law patient has been confused since he started spiking fevers - History Source History Provided By: Patient, Family Member Limitations to Obtaining History: Language Barrier - Alcohol/Substance Use Hx Alcohol Use: No - Smoking History Smoking history: Never smoked Have you smoked in the past 12 months: Yes Aproximately how many cigarettes per day: 1 Home Medications - Allergies Allergies/Adverse Reactions: Allergies Allergy/AdvReac Type Severity Reaction Status Date / Time No Known Drug Allergies Allergy Verified 12/08/17 08:30 - Home Medications Home Medications: Ambulatory Orders Aspirin Coated [Ecotrin -] 81 mg PO DAILY 08/31/13 Metoprolol Succinate [Toprol XL -] 50 mg PO DAILY 08/31/13 Amlodipine Besylate 5 mg PO DAILY 07/30/16 Mirabegron [Myrbetriq] 50 mg PO DAILY 07/30/16 Sitagliptin Phosphate [Januvia] 50 mg PO DAILY 07/30/16 Allopurinol [Zyloprim -] 100 mg PO DAILY 12/03/17 Atorvastatin Ca [Lipitor] 10 mg PO HS 12/03/17 Glipizide [Glipizide Xl] 10 mg PO DAILY 12/03/17 Amoxicillin - [Amoxicillin 875mg Tablet -] 875 mg PO BID 12/08/17 Review of Systems - Review of Systems Constitutional: reports: Chills, Fever Eyes: reports: No Symptoms HENT: reports: Epistaxis, Other (nasal paking removed) Neck: reports: No Symptoms Cardiovascular: reports: No Symptoms Respiratory: reports: No Symptoms Gastrointestinal: reports: No Symptoms Genitourinary: reports: No Symptoms Musculoskeletal: reports: No Symptoms Integumentary: reports: No Symptoms Neurological: reports: No Symptoms Endocrine: reports: No Symptoms Hematology/Lymphatic: reports: No Symptoms Psychiatric: reports: No Symptoms Physical Exam Vital Signs: Vital Signs Temperature 97.9 F 12/08/17 11:13 Pulse Rate 81 12/08/17 11:13 Respiratory Rate 18 12/08/17 11:13 Blood Pressure 115/75 12/08/17 11:13 O2 Sat by Pulse Oximetry (%) 98 12/08/17 11:13 Constitutional: Yes: Well Nourished, Calm, Mild Distress Eyes: Yes: Conjunctiva Clear HENT: Yes: Atraumatic, Normocephalic, Other Neck: Yes: Supple, Trachea Midline Cardiovascular: Yes: Regular Rate and Rhythm Respiratory: Yes: Regular, CTA Bilaterally Gastrointestinal: Yes: Normal Bowel Sounds, Soft Musculoskeletal: Yes: WNL Extremities: Yes: WNL Neurological: Yes: Alert, Oriented Psychiatric: Yes: Alert, Oriented Labs: CBC, BMP 12/08/17 09:23 12/08/17 09:23 Imaging - Results Chest X-ray: Report Reviewed, Image Reviewed Assessment/Plan Patient is an 82 year old male with a significant past medical history of hypertension, enlarged prostate, CKD and diabetes mellitus II. He presents to the ED today accompanied by his daughter in law for subjective fevers of 103F at home. As per daughter in law, patient had fever to 103F early this morning and general malaise. She noticed that he was confused also during the febrile episode. i am worried that the patient could have septic focus source being his sinuses sepsis fever r/o sinusitis dm plan ct of the head ct of sinuses will start patient on abx hydration await for all cx reports rest as per the team
[2017-12-08] MEDS ORDERED: PIPERACILLIN/TAZOBACTAM 2.25 GM VIAL IVPB ONE ×2 (13:08→18:05)
[2017-12-08] MEDS: PIPERACILLIN/TAZOB 2.25 GM 2.25 GM in DEXTROSE 5%-WATER - 50 ML IVPB SCH ×2 (14:00→18:14)
--- NOTE | 2017-12-08 14:21 | HP ---
CHIEF COMPLAINT: Fever, general malaise, confusion PCP: HISTORY OF PRESENT ILLNESS: Patient is an 82 year old male with a significant past medical history of hypertension, enlarged prostate, CKD and diabetes mellitus II. He presents to the ED today accompanied by his daughter in law for subjective fevers of 103F at home. As per daughter in law, patient had fever to 103F early this morning and general malaise. She noticed that he was confused also during the febrile episode. Patient was recently treated for a nosebleed 5 days ago and was packed by ENT ( left nare), the packing remained in place but was removed today in the ER. Patient was prescribed Amoxicillin by ENT and reports taking the medication. Patient denies chest pain, denies shortness of breath. Has notable upper body tremors and asterixis at rest which family reports is chronic. Patient denies cough, denies shortness of breath or chest pain. No longer confused, but will CT scan head now. CT scan of sinuses also ordered. ER course was notable for: (1) normal lactic acid (2) NA 133, bun 37/creat 2.9, Glucose 264, 103F subjective fevers at home reported, UC/BC sent (3) Chest xray with pleural reaction and atelectasis at left base with prom mediastinum Social History: Smoking: none Alcohol: none Drugs: none Family History: Allergies No Known Drug Allergies Allergy (Verified 12/08/17 08:30) HOME MEDICATIONS: Home Medications Medication Instructions Recorded Aspirin Coated [Ecotrin -] 81 mg PO DAILY 08/31/13 Metoprolol Succinate [Toprol XL -] 50 mg PO DAILY 08/31/13 Amlodipine Besylate 5 mg PO DAILY 07/30/16 Mirabegron [Myrbetriq] 50 mg PO DAILY 07/30/16 Sitagliptin Phosphate [Januvia] 50 mg PO DAILY 07/30/16 Allopurinol [Zyloprim -] 100 mg PO DAILY 12/03/17 Atorvastatin Ca [Lipitor] 10 mg PO HS 12/03/17 Glipizide [Glipizide Xl] 10 mg PO DAILY 12/03/17 Amoxicillin - [Amoxicillin 875mg 875 mg PO BID 12/08/17 Tablet -] \ PHYSICAL EXAMINATION Vital Signs - 24 hr 12/08/17 12/08/17 12/08/17 08:28 10:13 11:13 Temperature 99.5 F 97.9 F Pulse Rate 78 Pulse Rate [ 81 Apical] Respiratory 18 18 Rate Blood Pressure 127/67 Blood Pressure 115/75 [Right Arm] O2 Sat by Pulse 93 L 97 98 Oximetry (%) GENERAL: Awake, alert, and fully oriented, in no acute distress. HEAD: Normal with no signs of trauma. EYES: Pupils equal, round and reactive to light, extraocular movements intact, sclera anicteric, conjunctiva clear. No lid lag. EARS, NOSE, THROAT: Ears normal, nares patent, oropharynx clear without exudates. Moist mucous membranes. NECK: Normal range of motion, supple without lymphadenopathy, JVD, or masses. LUNGS: diminished lower lobes bilaterally, left > right HEART: Regular rate and rhythm ABDOMEN: Soft, nontender, mildly distended MUSCULOSKELETAL: Normal range of motion at all joints. No bony deformities or tenderness. No CVA tenderness. UPPER EXTREMITIES: mild tremors at rest LOWER EXTREMITIES: No peripheral edema. NEUROLOGICAL: awake, alert, mild upper body tremors at rest PSYCHIATRIC: Cooperative. Good eye contact. Appropriate mood and affect. SKIN: Warm, dry, normal turgor, no rashes or lesions noted, normal capillary refill. Laboratory Results - last 24 hr 12/08/17 12/08/17 12/08/17 09:23 09:23 09:23 WBC 8.3 D RBC 5.06 Hgb 14.3 Hct 43.9 MCV 86.7 MCH 28.2 MCHC 32.5 RDW 15.7 Plt Count 215 MPV 7.6 Neutrophils % 64.5 Lymphocytes % 23.1 Monocytes % 9.7 Eosinophils % 2.2 Basophils % 0.5 PT with INR 11.90 INR 1.05 PTT (Actin FS) 30.3 Sodium 133 L Potassium 4.9 D Chloride 101 Carbon Dioxide 26 Anion Gap 6 L BUN 37 H D Creatinine 2.9 H D Creat Clearance w eGFR 20.94 Random Glucose 264 H D Lactic Acid Calcium 8.8 Total Bilirubin 0.7 D AST 23 D ALT 38 D Alkaline Phosphatase 43 L Troponin I Total Protein 7.9 Albumin 3.7 Urine Color Urine Appearance Urine pH Ur Specific [place] Urine Protein Urine Glucose (UA) Urine Ketones Urine Blood Urine Nitrite Urine Bilirubin Urine Urobilinogen Ur Leukocyte Esterase Urine WBC (Auto) Urine RBC (Auto) Hyaline Casts Urine Mucus 12/08/17 12/08/1718 09:23 09:23 09:45 WBC RBC Hgb Hct MCV MCH MCHC RDW Plt Count MPV Neutrophils % Lymphocytes % Monocytes % Eosinophils % Basophils % PT with INR INR PTT (Actin FS) Sodium Potassium Chloride Carbon Dioxide Anion Gap BUN Creatinine Creat Clearance w eGFR Random Glucose Lactic Acid 1.4 Calcium Total Bilirubin AST ALT Alkaline Phosphatase Troponin I < 0.02 Total Protein Albumin Urine Color Yellow Urine Appearance Clear Urine pH 5.0 Ur Specific [place] 1.019 Urine Protein 2+ H Urine Glucose (UA) Negative Urine Ketones Negative Urine Blood Negative Urine Nitrite Negative Urine Bilirubin Negative Urine Urobilinogen Negative Ur Leukocyte Esterase 1+ H Urine WBC (Auto) 10 Urine RBC (Auto) 4 Hyaline Casts 3 Urine Mucus Rare ASSESSMENT/PLAN: Patient is an 82 year old male with a significant past medical history of hypertension, enlarged prostate, CKD and diabetes mellitus II. He presents to the ED today accompanied by his daughter in law for subjective fevers of 103F at home. As per daughter in law, patient had fever to 103F early this morning and general malaise. She noticed that he was confused also during the febrile episode. Patient was recently treated for a nosebleed 5 days ago and was packed by ENT ( left nare), the packing remained in place but was removed today in the ER. Patient was prescribed Amoxicillin by ENT and reports taking the medication. Patient denies chest pain, denies shortness of breath. Has notable upper body tremors and asterixis at rest which family reports is chronic. Patient denies cough, denies shortness of breath or chest pain. No longer confused, but will CT scan head now. CT scan of sinuses also ordered. 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 No CT evidence of acute infarct. CT/Sinus CT w/o contrast: chronic right maxillary sinusitis. ENT: Left nare nose epistaxis, s/p packing x 5 days No signs of bleeding at this time Hold of on anticoagulation Consider ENT evaluation if symptoms worsen CT of sinus ordered ID: Subjective fevers with chills and general malaise on presentation Symptoms began 3 days prior Low grade fevers here, WBC normal, lactic acid wnl Blood cultures pending/urine cultures pending ID consulted, on Zosyn and Clinda UA with mild infection ID following Neuro: Metabolic encephalopathy Family notes confusion with fevers Mental status back to baseline currently, Head CT ordered Hand tremors and mild asterixis noted on admission, family states this is chronic Renal MOHSEN on CKD Baseline creat ~ 2.2 comes in with 2.9 creatinine, has peaked to 5.2 on previous admission Will give IVF and repeat labs in a.m. Hold neprotoxins and monitor intake, output Bladder scan now Renal consulted Card: Hypertension, controlled On Toprol XL 50 and amlodipine 5mg Endo: Diabetes Mellitus, chronic On Januvia and Glipizide BGMs ac/hs Will add sliding scale w/ Novolog F.E.N. Fluids: NS @ 75cc/hr Electrolytes: monitor Nutriton: diabetic diet Prophylaxis DVT: SCDs, hold off on any anticoag 2/2 to recent epistaxis GI: Protonix Disposition: full code Hospitalist Screening - Colonoscopy Questionnaire Colonoscopy Questionnaire: Colonoscopy Questionnaire
[2017-12-08] MEDS: SODIUM CHLORIDE 1,000 ML IV SCH ×2 (14:54→21:58)
[2017-12-08] MEDS ORDERED: ACETAMINOPHEN 325 MG TABLET (FP) ONE (15:04)
[2017-12-08] MEDS ORDERED: ACETAMINOPHEN 325 MG TABLET (FP) PO ONE (15:08)
[2017-12-08] MEDS: INSULIN SLIDING SCALE (NOVOLOG) 1 VIAL SQ SCH ×2 (18:00→21:53)
[2017-12-08] MEDS: CLINDAMYCIN 300 MG PREMIX IVPB 300 MG/50 ML BAG IVPB SCH (20:39)
[2017-12-08] MEDS: DOCUSATE SODIUM 100 MG CAPSULE (FP) PO SCH (21:53)
[2017-12-08] MEDS: ATORVASTATIN CA 10 MG TABLET (FP) PO SCH (21:56)
[2017-12-08] MEDS: ACETAMINOPHEN 325 MG TABLET (FP) PO PRN (21:56)
[2017-12-09] MEDS ORDERED: DEXTROSE 5%-WATER - 50 ML IVPB ONE ×3 (01:02→17:07)
[2017-12-09] MEDS ORDERED: PIPERACILLIN/TAZOBACTAM 2.25 GM VIAL IVPB ONE ×4 (01:02→17:09)
[2017-12-09] MEDS: CLINDAMYCIN 300 MG PREMIX IVPB 300 MG/50 ML BAG IVPB SCH ×3 (01:09→17:30)
[2017-12-09] MEDS: PIPERACILLIN/TAZOB 2.25 GM 2.25 GM in DEXTROSE 5%-WATER - 50 ML IVPB SCH ×3 (02:12→17:30)
[2017-12-09] MEDS: ACETAMINOPHEN 325 MG TABLET (FP) PO PRN ×2 (06:05→13:26)
[2017-12-09] MEDS: glipiZIDE-XL 10 MG TAB.ER.24 (FP) PO SCH (06:25)
[2017-12-09] MEDS: sitaGLIPtin PHOSPHATE 50 MG TABLET PO SCH (06:25)
[2017-12-09] MEDS: INSULIN SLIDING SCALE (NOVOLOG) 1 VIAL SQ SCH ×4 (06:26→22:25)
[2017-12-09] MEDS: DOCUSATE SODIUM 100 MG CAPSULE (FP) PO SCH ×3 (06:26→22:09)
--- NOTE | 2017-12-09 09:09 | PN ---
Physical Exam: SUBJECTIVE: Patient seen and examined at the bedside. Feels well, sitting in chair. Daughter Marissa at the bedside. OBJECTIVE: Febrile overnight, pending blood cultures UA with mild UTI On Clinda and Zosyn Vital Signs Period Temp Pulse Resp BP Sys/Kay Pulse Ox Last 24 Hr 97.9 F-101 F 77-86 17-20 115-171/74-85 97-98 GENERAL: Awake, alert, and fully oriented, in no acute distress. HEAD: Normal with no signs of trauma. EYES: Pupils equal, round and reactive to light, extraocular movements intact, sclera anicteric, conjunctiva clear. No lid lag. EARS, NOSE, THROAT: Ears normal, nares patent, oropharynx clear without exudates. Moist mucous membranes. NECK: Normal range of motion, supple without lymphadenopathy, JVD, or masses. LUNGS: diminished lower lobes bilaterally, left > right HEART: Regular rate and rhythm ABDOMEN: Soft, nontender, mildly distended MUSCULOSKELETAL: Normal range of motion at all joints. No bony deformities or tenderness. No CVA tenderness. UPPER EXTREMITIES: mild tremors at rest LOWER EXTREMITIES: No peripheral edema. NEUROLOGICAL: awake, alert, mild upper body tremors at rest PSYCHIATRIC: Cooperative. Good eye contact. Appropriate mood and affect. SKIN: Warm, dry, normal turgor, no rashes or lesions noted, normal capillary refill. Laboratory Results - last 24 hr 12/08/17 12/08/17 12/08/17 09:23 09:23 09:23 WBC 8.3 D RBC 5.06 Hgb 14.3 Hct 43.9 MCV 86.7 MCH 28.2 MCHC 32.5 RDW 15.7 Plt Count 215 MPV 7.6 Neutrophils % 64.5 Lymphocytes % 23.1 Monocytes % 9.7 Eosinophils % 2.2 Basophils % 0.5 PT with INR 11.90 INR 1.05 PTT (Actin FS) 30.3 Sodium 133 L Potassium 4.9 D Chloride 101 Carbon Dioxide 26 Anion Gap 6 L BUN 37 H D Creatinine 2.9 H D Creat Clearance w eGFR 20.94 POC Glucometer Random Glucose 264 H D Lactic Acid Calcium 8.8 Total Bilirubin 0.7 D AST 23 D ALT 38 D Alkaline Phosphatase 43 L Troponin I Total Protein 7.9 Albumin 3.7 Urine Color Urine Appearance Urine pH Ur Specific [place] Urine Protein Urine Glucose (UA) Urine Ketones Urine Blood Urine Nitrite Urine Bilirubin Urine Urobilinogen Ur Leukocyte Esterase Urine WBC (Auto) Urine RBC (Auto) Hyaline Casts Urine Mucus 12/08/17 12/08/17 12/08/17 09:23 09:23 09:45 WBC RBC Hgb Hct MCV MCH MCHC RDW Plt Count MPV Neutrophils % Lymphocytes % Monocytes % Eosinophils % Basophils % PT with INR INR PTT (Actin FS) Sodium Potassium Chloride Carbon Dioxide Anion Gap BUN Creatinine Creat Clearance w eGFR POC Glucometer Random Glucose Lactic Acid 1.4 Calcium Total Bilirubin AST ALT Alkaline Phosphatase Troponin I < 0.02 Total Protein Albumin Urine Color Yellow Urine Appearance Clear Urine pH 5.0 Ur Specific [place] 1.019 Urine Protein 2+ H Urine Glucose (UA) Negative Urine Ketones Negative Urine Blood Negative Urine Nitrite Negative Urine Bilirubin Negative Urine Urobilinogen Negative Ur Leukocyte Esterase 1+ H Urine WBC (Auto) 10 Urine RBC (Auto) 4 Hyaline Casts 3 Urine Mucus Rare 12/08/17 12/08/17 12/08/17 14:25 18:11 19:15 WBC RBC Hgb Hct MCV MCH MCHC RDW Plt Count MPV Neutrophils % Lymphocytes % Monocytes % Eosinophils % Basophils % PT with INR INR PTT (Actin FS) Sodium Potassium Chloride Carbon Dioxide Anion Gap BUN Creatinine Creat Clearance w eGFR POC Glucometer [phone] Random Glucose Lactic Acid 2.4 H* 2.2 H* Calcium Total Bilirubin AST ALT Alkaline Phosphatase Troponin I Total Protein Albumin Urine Color Urine Appearance Urine pH Ur Specific [place] Urine Protein Urine Glucose (UA) Urine Ketones Urine Blood Urine Nitrite Urine Bilirubin Urine Urobilinogen Ur Leukocyte Esterase Urine WBC (Auto) Urine RBC (Auto) Hyaline Casts Urine Mucus 12/08/17 12/09/17 12/09/17 21:51 05:41 06:45 WBC RBC Hgb Hct MCV MCH MCHC RDW Plt Count MPV Neutrophils % Lymphocytes % Monocytes % Eosinophils % Basophils % PT with INR INR PTT (Actin FS) Sodium Potassium Chloride Carbon Dioxide Anion Gap BUN Creatinine Creat Clearance w eGFR POC Glucometer 157 150 Random Glucose Lactic Acid 1.4 Calcium Total Bilirubin AST ALT Alkaline Phosphatase Troponin I Total Protein Albumin Urine Color Urine Appearance Urine pH Ur Specific [place] Urine Protein Urine Glucose (UA) Urine Ketones Urine Blood Urine Nitrite Urine Bilirubin Urine Urobilinogen Ur Leukocyte Esterase Urine WBC (Auto) Urine RBC (Auto) Hyaline Casts Urine Mucus Active Medications Generic Name Dose Route Start Last Admin Trade Name Freq PRN Reason Stop Dose Admin Acetaminophen 650 mg 12/08/17 14:55 12/09/17 06:05 Tylenol - PO 650 mg Q6H PRN Administration FEVER Allopurinol 100 mg 12/09/17 10:00 Zyloprim - PO DAILY [facility] Amlodipine Besylate 5 mg 12/09/17 10:00 Norvasc - PO DAILY MINNA Aspirin 81 mg 12/09/17 10:00 Ecotrin - PO DAILY MINNA Atorvastatin Calcium 10 mg 12/08/17 22:00 12/08/17 21:56 Lipitor - PO 10 mg HS MINNA Administration Docusate Sodium 100 mg 12/08/17 22:00 12/09/17 06:26 Colace - PO 100 mg TID MINNA Administration Glipizide 10 mg 12/09/17 07:00 12/09/17 06:25 Glucotrol Xl - PO 10 mg DAILY@0700 MINNA Administration Clindamycin Phosphate 300 mg in 50 mls @ 100 mls/hr 12/08/17 18:00 12/09/17 01:09 Cleocin 300 Mg Premix Ivpb IVPB 100 mls/hr Q8H-IV MINNA Administration Protocol Piperacillin Sod/Tazobactam 50 mls @ 100 mls/hr 12/08/17 13:45 12/09/17 02:12 Sod 2.25 gm/ Dextrose IVPB 100 mls/hr Q8H-IV MINNA Administration Protocol Sodium Chloride 1,000 mls @ 75 mls/hr 12/08/17 14:45 12/08/17 21:58 Normal Saline - IV 75 mls/hr ASDIR MINNA Administration Insulin Aspart 1 vial 12/08/17 16:30 12/09/17 06:26 Novolog Vial Sliding Scale - SQ Not Given ACHS MINNA Protocol Metoprolol Succinate 50 mg 12/09/17 10:00 Toprol Xl - PO DAILY [facility] Sitagliptin Phosphate 50 mg 12/09/17 07:00 12/09/17 06:25 Januvia - PO 50 mg DAILY@0700 [facility] Administration ASSESSMENT/PLAN: Patient is an 82 year old male with a significant past medical history of hypertension, enlarged prostate, CKD and diabetes mellitus II. He presents to the ED today accompanied by his daughter in law for subjective fevers of 103F at home. As per daughter in law, patient had fever to 103F early this morning and general malaise. She noticed that he was confused also during the febrile episode. Patient was recently treated for a nosebleed 5 days ago and was packed by ENT ( left nare), the packing remained in place but was removed today in the ER. Patient was prescribed Amoxicillin by ENT and reports taking the medication. Patient denies chest pain, denies shortness of breath. Has notable upper body tremors and asterixis at rest which family reports is chronic. Patient denies cough, denies shortness of breath or chest pain. No longer confused, but will CT scan head now. CT scan of sinuses also ordered. 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 No CT evidence of acute infarct. CT/Sinus CT w/o contrast: chronic right maxillary sinusitis. ENT: Left nare nose epistaxis, s/p packing x 5 days No signs of bleeding at this time Hold of on anticoagulation Consider ENT evaluation if symptoms worsen CT of sinus ordered ID: Subjective fevers with chills and general malaise on presentation Symptoms began 3 days prior Early sepsis from ? Sinusitis Low grade fevers here, WBC normal, lactic acid wnl with repeat labs Blood cultures pending/urine cultures pending ID consulted, on Zosyn and Clinda UA with mild infection ID following Neuro: Metabolic encephalopathy Family notes confusion with fevers Mental status back to baseline currently, Head CT negative Hand tremors and mild asterixis noted on admission, family states this is chronic Renal MOHSEN on CKD Baseline creat ~ 2.2 comes in with 2.9 creatinine, has peaked to 5.2 on previous admission Will give IVF and repeat labs in a.m. Hold neprotoxins and monitor intake, output Renal ultrasound negative for hydro Renal consulted Card: Hypertension, controlled On Toprol XL 50 and amlodipine 5mg Endo: Diabetes Mellitus, chronic On Januvia and Glipizide BGMs ac/hs Will add sliding scale w/ Novolog F.E.N. Fluids: NS @ 75cc/hr Electrolytes: monitor Nutriton: diabetic diet Prophylaxis DVT: SCDs, hold off on any anticoag 2/2 to recent epistaxis GI: Protonix Disposition: full code
[2017-12-09] MEDS: ALLOPURINOL 100 MG TABLET (FP) PO SCH (09:17)
[2017-12-09] MEDS: amLODIPine BESYLATE 5 MG TABLET (FP) PO SCH (09:17)
[2017-12-09] MEDS: ASPIRIN COATED 81 MG TABLET.EC PO SCH (09:17)
[2017-12-09 11:17] LABS: BASO % 0.7 % (0-2.0); EOS % 4.3 % (0-4.5); HEMATOCRIT 36.3 % (35.4-49); HEMOGLOBIN 12.2 GM/dL (11.7-16.9); LYMPH % 28.2 % (8-40); MCH 29.1 pg (25.7-33.7); MCHC 33.6 g/dl (32.0-35.9); MEAN CELL VOLUME 86.5 fl (80-96); MEAN PLT VOLUME 7.7 fl (7.5-11.1); MONO % 12.5 % (3.8-10.2); NEUT % 54.3 % (42.8-82.8); PLATELET COUNT 162 K/MM3 (134-434); RDW 15.3 % (11.9-15.9); WHITE BLOOD COUNT 6.7 K/mm3 (4.0-10.0)
[2017-12-09 11:32] LABS: ALBUMIN 3.1 g/dl (3.4-5.0); ANION GAP 8 (8-16); BLOOD UREA NITROGEN 30 mg/dL (7-18); CALCIUM 7.7 mg/dL (8.5-10.1); CHLORIDE 105 mmol/L (98-107); CO2 22 mmol/L (21-32); GLUCOSE,RANDOM 130 mg/dL (74-106); MAGNESIUM 2.3 mg/dL (1.8-2.4); POTASSIUM 3.9 mmol/L (3.5-5.1); SGOT/AST 19 U/L (15-37); SGPT/ALT 27 U/L (12-78); SODIUM 135 mmol/L (136-145)
[2017-12-09 11:36] LABS: ALK PHOS 32 U/L (45-117); BILIRUBIN,TOTAL 0.7 mg/dL (0.2-1.0); CHOLESTEROL 108 mg/dL (50-200); HDL CHOLESTEROL 43 mg/dL (40-60); TOT PROT 6.9 g/dl (6.4-8.2); TRIGLYCERIDES 112 mg/dL (35-160)
[2017-12-09] MEDS: SODIUM CHLORIDE 1,000 ML IV SCH ×2 (13:27→17:36)
--- NOTE | 2017-12-09 14:36 | PN ---
Progress Note, Physician History of Present Illness: had spikes of fever yesterday still having chills weak grandson in the room - Current Medication List Current Medications: Active Medications Acetaminophen (Tylenol -) 650 mg PO Q6H PRN PRN Reason: FEVER Last Admin: 12/09/17 13:26 Dose: 650 mg Allopurinol (Zyloprim -) 100 mg PO DAILY [facility] Last Admin: 12/09/17 09:17 Dose: 100 mg Amlodipine Besylate (Norvasc -) 5 mg PO DAILY [facility] Last Admin: 12/09/17 09:17 Dose: 5 mg Aspirin (Ecotrin -) 81 mg PO DAILY [facility] Last Admin: 12/09/17 09:17 Dose: 81 mg Atorvastatin Calcium (Lipitor -) 10 mg PO HS [facility] Last Admin: 12/08/17 21:56 Dose: 10 mg Docusate Sodium (Colace -) 100 mg PO TID [facility] Last Admin: 12/09/17 06:26 Dose: 100 mg Glipizide (Glucotrol Xl -) 10 mg PO DAILY@0700 [facility] Last Admin: 12/09/17 06:25 Dose: 10 mg Clindamycin Phosphate (Cleocin 300 Mg Premix Ivpb) 300 mg in 50 mls @ 100 mls/ hr IVPB Q8H-IV MINNA PRN Reason: Protocol Last Admin: 12/09/17 11:37 Dose: 100 mls/hr Piperacillin Sod/Tazobactam (Sod 2.25 gm/ Dextrose) 50 mls @ 100 mls/hr IVPB Q8H-IV MIN[facility] PRN Reason: Protocol Last Admin: 12/09/17 09:17 Dose: 100 mls/hr Sodium Chloride (Normal Saline -) 1,000 mls @ 75 mls/hr IV ASDIR [facility] Last Admin: 12/09/17 13:27 Dose: 75 mls/hr Insulin Aspart (Novolog Vial Sliding Scale -) 1 vial SQ ACHS [facility] PRN Reason: Protocol Last Admin: 12/09/17 12:21 Dose: Not Given Metoprolol Succinate (Toprol Xl -) 50 mg PO DAILY [facility] Last Admin: 12/09/17 09:16 Dose: 50 mg Sitagliptin Phosphate (Januvia -) 50 mg PO DAILY@0700 [facility] Last Admin: 12/09/17 06:25 Dose: 50 mg - Objective Vital Signs: Vital Signs Temperature 98.6 F 12/09/17 13:47 Pulse Rate 77 12/09/17 13:47 Respiratory Rate 18 12/09/17 13:47 Blood Pressure 138/97 12/09/17 13:47 O2 Sat by Pulse Oximetry (%) 97 12/08/17 23:00 Constitutional: Yes: Calm, Mild Distress Cardiovascular: Yes: Regular Rate and Rhythm Respiratory: Yes: Regular, CTA Bilaterally Gastrointestinal: Yes: Normal Bowel Sounds, Soft Musculoskeletal: Yes: WNL Extremities: Yes: WNL Neurological: Yes: Alert Psychiatric: Yes: Alert Labs: CBC, BMP 12/09/17 10:45 12/09/17 10:45 INR, PTT INR 1.05 (0.82-1.09) 12/08/17 09:23 - ....Imaging Cat Scan: Report Reviewed, Image Reviewed Assessment/Plan patient still havng chills and low grade fever ct scans noted i think the infection did come from the sinuses all cx reports noted sepsis fever dm ac sinusitis plan continue abx monitor wbc rest continue current mgmt monitor for fevers
--- NOTE | 2017-12-09 15:21 | CONSULT ---
Consult Consult Specialty:: Renal Reason for Consultation:: MOHSEN ON CKD - History of Present Illness History of Present Illness: 82 yo M h/o CKD, HTN, IDDM admitted to the hospital for sepsis secondary to sinusitis and later found to have MOHSEN with BUN/Cr of 37/2.9. Patient is confused and not able to provide details of his health condition. Per his grandson, he's been having subjective fevers at home. Patient was seen in the ED for epistaxis on 12/03/17, ENT packed his nose and he's discharged home on amoxicillin. In 07/2017, he was admitted due to generalized weakness, his Cr spiked to 5.2 then slowly back to his baseline around 2.2. Through his grandson at bedside, he denies any NSAID use, urinary or bowel sx. - History Source History Provided By: Family Member Limitations to Obtaining History: No Limitations - Alcohol/Substance Use Hx Alcohol Use: No - Smoking History Smoking history: Never smoked Have you smoked in the past 12 months: Yes Aproximately how many cigarettes per day: 1 Home Medications - Allergies Allergies/Adverse Reactions: Allergies Allergy/AdvReac Type Severity Reaction Status Date / Time No Known Drug Allergies Allergy Verified 12/08/17 08:30 - Home Medications Home Medications: Ambulatory Orders RX: Aspirin Coated [Ecotrin -] 81 mg PO DAILY 08/31/13 RX: Metoprolol Succinate [Toprol XL -] 50 mg PO DAILY 08/31/13 RX: Amlodipine Besylate 5 mg PO DAILY 07/30/16 RX: Mirabegron [Myrbetriq] 50 mg PO DAILY 07/30/16 RX: Sitagliptin Phosphate [Januvia] 50 mg PO DAILY 07/30/16 Allopurinol [Zyloprim -] 100 mg PO DAILY 12/03/17 Atorvastatin Ca [Lipitor] 10 mg PO HS 12/03/17 Glipizide [Glipizide Xl] 10 mg PO DAILY 12/03/17 Amoxicillin - [Amoxicillin 875mg Tablet -] 875 mg PO BID 12/08/17 Review of Systems - Review of Systems Constitutional: reports: Fever, Malaise Eyes: reports: No Symptoms Cardiovascular: reports: No Symptoms Respiratory: reports: No Symptoms Gastrointestinal: reports: No Symptoms Neurological: reports: Change in LOC, Confusion Physical Exam Vital Signs: Vital Signs Temperature 98.6 F 12/09/17 13:47 Pulse Rate 77 12/09/17 13:47 Respiratory Rate 18 12/09/17 13:47 Blood Pressure 138/97 12/09/17 13:47 O2 Sat by Pulse Oximetry (%) 97 12/08/17 23:00 Constitutional: Yes: No Distress, Calm Cardiovascular: Yes: Regular Rate and Rhythm, Bradycardia, S1, S2 Respiratory: Yes: CTA Bilaterally Gastrointestinal: Yes: Normal Bowel Sounds. No: Tenderness Extremities: Yes: Cool. No: Calf Tenderness, Erythema Edema: No Peripheral Pulses WNL: Yes Labs: CBC, BMP 12/09/17 10:45 12/09/17 10:45 Imaging - Results Chest X-ray: Report Reviewed, Image Reviewed Cat Scan: Report Reviewed, Image Reviewed Assessment/Plan 82 yo M h/o hypertension, BPH, CKD and DMII admitted to the hospital for sepsis. Sepsis from ?sinusitis Metabolic encephalopathy MOHSEN on CKD BPH DMII HTN - Cont. abx for sepsis - Cr at baseline today, MOHSEN likely from sepsis, cont. hydration - f/u urine lytes to calculate FeNa, UPCR - Renal U/S - Avoid NSAIDs and other nephrotoxic agents - Cont. to monitor Cr Visit type - Emergency Visit Emergency Visit: No - New Patient This patient is new to me today: Yes Date on this admission: 12/09/17 - Critical Care Critical Care patient: No
[2017-12-09] MEDS ORDERED: PT OWN MED DRAWER 7, Y5N ONE ×2 (17:07→20:49)
--- NOTE | 2017-12-09 17:41 | PN ---
Teaching Attending Note Name of Resident: Eric Ortiz (Nephrology) ATTENDING PHYSICIAN STATEMENT I saw and evaluated the patient. I reviewed the resident's note and discussed the case with the resident. I agree with the resident's findings and plan as documented. SUBJECTIVE: This is a 82 year old gentleman with PMhx of CKD, Hypertension, HLD, DM who presented with fevers and admitted for Sinusitis with MOHSEN with Cr of 2.9. Grandson at the bedside. Pt reports feeling unwell for about 2 weeks. Had recent nose bleed that required packing. Denies any nsaid use, contrast exposure. No N/V/D. No rash. No flank pain. Tolerating diet. PMhx: As above Allergies: NKDA Family hx: NC Social hx: No T/A/D ROS: As per HPI Home Medications Medication Instructions Recorded Aspirin Coated [Ecotrin -] 81 mg PO DAILY 08/31/13 Metoprolol Succinate [Toprol XL -] 50 mg PO DAILY 08/31/13 Amlodipine Besylate 5 mg PO DAILY 07/30/16 Mirabegron [Myrbetriq] 50 mg PO DAILY 07/30/16 Sitagliptin Phosphate [Januvia] 50 mg PO DAILY 07/30/16 Allopurinol [Zyloprim -] 100 mg PO DAILY 12/03/17 Atorvastatin Ca [Lipitor] 10 mg PO HS 12/03/17 Glipizide [Glipizide Xl] 10 mg PO DAILY 12/03/17 Amoxicillin - [Amoxicillin 875mg 875 mg PO BID 12/08/17 Tablet -] OBJECTIVE: Vital Signs Temperature 98.6 F 12/09/17 13:47 Pulse Rate 77 12/09/17 13:47 Respiratory Rate 18 12/09/17 13:47 Blood Pressure 138/97 12/09/17 13:47 O2 Sat by Pulse Oximetry (%) 97 12/08/17 23:00 NAD on NC O2 Neck supple, No JVD RRR, No M/R faint rales at lung bases soft NT/ND No LE edema, clubbing or cyanosis no tenderness over the sinus CBC, BMP 12/09/17 10:45 12/09/17 10:45 Current Medications Acetaminophen (Tylenol -) 650 mg PO Q6H PRN PRN Reason: FEVER Last Admin: 12/09/17 13:26 Dose: 650 mg Allopurinol (Zyloprim -) 100 mg PO DAILY [facility] Last Admin: 12/09/17 09:17 Dose: 100 mg Amlodipine Besylate (Norvasc -) 5 mg PO DAILY [facility] Last Admin: 12/09/17 09:17 Dose: 5 mg Aspirin (Ecotrin -) 81 mg PO DAILY [facility] Last Admin: 12/09/17 09:17 Dose: 81 mg Atorvastatin Calcium (Lipitor -) 10 mg PO HS [facility] Last Admin: 12/08/17 21:56 Dose: 10 mg Docusate Sodium (Colace -) 100 mg PO TID [facility] Last Admin: 12/09/17 14:51 Dose: Not Given Glipizide (Glucotrol Xl -) 10 mg PO DAILY@0700 [facility] Last Admin: 12/09/17 06:25 Dose: 10 mg Clindamycin Phosphate (Cleocin 300 Mg Premix Ivpb) 300 mg in 50 mls @ 100 mls/ hr IVPB Q8H-IV [facility] PRN Reason: Protocol Last Admin: 12/09/17 17:30 Dose: 100 mls/hr Piperacillin Sod/Tazobactam (Sod 2.25 gm/ Dextrose) 50 mls @ 100 mls/hr IVPB Q8H-IV [facility] PRN Reason: Protocol Last Admin: 12/09/17 17:30 Dose: 100 mls/hr Sodium Chloride (Normal Saline -) 1,000 mls @ 75 mls/hr IV ASDIR [facility] Last Admin: 12/09/17 17:36 Dose: Not Given Insulin Aspart (Novolog Vial Sliding Scale -) 1 vial SQ ACHS [facility] PRN Reason: Protocol Last Admin: 12/09/17 17:37 Dose: Not Given Metoprolol Succinate (Toprol Xl -) 50 mg PO DAILY [facility] Last Admin: 12/09/17 09:16 Dose: 50 mg Sitagliptin Phosphate (Januvia -) 50 mg PO DAILY@0700 [facility] Last Admin: 12/09/17 06:25 Dose: 50 mg ASSESSMENT AND PLAN: 82 year old gentleman with PMhx of CKD, Hypertension, HLD, DM who presented with fevers and admitted for Sinusitis with MOHSEN with Cr of 2.9. Grandson at the bedside. #MOHSEN on CKd #Fever #Hypertension #Hyponatremia Renal function improving with IVF Check urine studies trend BUN/Cr and electrolytes keep MAP > 65 avoid nephrotoxins, IV contrast Continue Abx as per ID f/u cultures Trend serum Na on isotonic saline continue metoprolol and amlodpine Thank you will follow Saw Esposito DO
--- NOTE | 2017-12-09 18:06 | EKG ---
Test Reason : Blood Pressure : / mmHG Vent. Rate : 070 BPM Atrial Rate : 070 BPM P-R Int : 208 ms QRS Dur : 096 ms QT Int : 406 ms P-R-T Axes : 050 064 074 degrees QTc Int : 438 ms NORMAL SINUS RHYTHM NORMAL ECG WHEN COMPARED WITH ECG OF 08-DEC-2017 16:48, NO SIGNIFICANT CHANGE WAS FOUND Confirmed by AMY MARIO MD ([id number]) on 12/09/2017 6:05:35 PM Referred By: Confirmed By:AMY MARIO MD
[2017-12-09 21:04] LABS: RATIO URIN PROTEIN/URIN CREAT 0.6 MG/DL
[2017-12-09] MEDS: ATORVASTATIN CA 10 MG TABLET (FP) PO SCH (22:09)
--- NOTE | 2017-12-09 23:53 | EKG ---
Test Reason : Blood Pressure : / mmHG Vent. Rate : 079 BPM Atrial Rate : 079 BPM P-R Int : 182 ms QRS Dur : 098 ms QT Int : 384 ms P-R-T Axes : 037 068 067 degrees QTc Int : 440 ms NORMAL SINUS RHYTHM NORMAL ECG WHEN COMPARED WITH ECG OF 08-DEC-2017 10:32, CRITERIA FOR SEPTAL INFARCT ARE NO LONGER PRESENT Confirmed by AMY MARIO MD [id number]) on 12/09/2017 11:53:04 PM Referred By: Nitin GIFFORD Confirmed By:AMY MARIO MD
--- NOTE | 2017-12-10 00:05 | EKG ---
Test Reason : Blood Pressure : / mmHG Vent. Rate : 069 BPM Atrial Rate : 069 BPM P-R Int : 194 ms QRS Dur : 094 ms QT Int : 408 ms P-R-T Axes : 033 060 072 degrees QTc Int : 437 ms NORMAL SINUS RHYTHM SEPTAL INFARCT , AGE UNDETERMINED ABNORMAL ECG WHEN COMPARED WITH ECG OF 04-AUG-2016 14:41, SEPTAL INFARCT IS NOW PRESENT Confirmed by AMY MARIO MD ([id number]) on 12/10/2017 12:05:28 AM Referred By: Confirmed By:AMY MARIO MD
[2017-12-10] MEDS ORDERED: DEXTROSE 5%-WATER - 50 ML IVPB ONE ×4 (01:07→23:19)
[2017-12-10] MEDS ORDERED: PIPERACILLIN/TAZOBACTAM 2.25 GM VIAL IVPB ONE ×4 (01:07→23:19)
[2017-12-10] MEDS ORDERED: PT OWN MED DRAWER 7, Y5N ONE (01:09)
[2017-12-10] MEDS: PIPERACILLIN/TAZOB 2.25 GM 2.25 GM in DEXTROSE 5%-WATER - 50 ML IVPB SCH ×3 (01:18→17:02)
[2017-12-10] MEDS: CLINDAMYCIN 300 MG PREMIX IVPB 300 MG/50 ML BAG IVPB SCH ×3 (02:46→17:02)
[2017-12-10] MEDS: DOCUSATE SODIUM 100 MG CAPSULE (FP) PO SCH ×3 (06:45→21:28)
[2017-12-10] MEDS: sitaGLIPtin PHOSPHATE 50 MG TABLET PO SCH (06:45)
[2017-12-10] MEDS: glipiZIDE-XL 10 MG TAB.ER.24 (FP) PO SCH (06:46)
[2017-12-10] MEDS: INSULIN SLIDING SCALE (NOVOLOG) 1 VIAL SQ SCH ×4 (06:46→21:29)
[2017-12-10] MEDS: ALLOPURINOL 100 MG TABLET (FP) PO SCH (09:06)
[2017-12-10] MEDS: amLODIPine BESYLATE 5 MG TABLET (FP) PO SCH (09:06)
[2017-12-10] MEDS: ASPIRIN COATED 81 MG TABLET.EC PO SCH (09:07)
[2017-12-10 10:23] LABS: EOS % 4.5 % (0-4.5); HEMATOCRIT 38.2 % (35.4-49); LYMPH % 22.7 % (8-40); MCH 29.2 pg (25.7-33.7); MEAN CELL VOLUME 85.9 fl (80-96); MEAN PLT VOLUME 7.7 fl (7.5-11.1); MONO % 9.3 % (3.8-10.2); NEUT % 62.5 % (42.8-82.8); PLATELET COUNT 175 K/MM3 (134-434); RBC 4.45 M/mm3 (4.00-5.60); WHITE BLOOD COUNT 6.8 K/mm3 (4.0-10.0)
[2017-12-10 10:49] LABS: ALBUMIN 3.4 g/dl (3.4-5.0); ANION GAP 10 (8-16); BLOOD UREA NITROGEN 24 mg/dL (7-18); CALCIUM 7.8 mg/dL (8.5-10.1); CHLORIDE 104 mmol/L (98-107); CO2 21 mmol/L (21-32); GLUCOSE,RANDOM 151 mg/dL (74-106); MAGNESIUM 2.3 mg/dL (1.8-2.4); POTASSIUM 3.8 mmol/L (3.5-5.1); SODIUM 135 mmol/L (136-145)
[2017-12-10 10:53] LABS: ALK PHOS 36 U/L (45-117); CREATININE 1.8 mg/dL (0.7-1.3); SGOT/AST 24 U/L (15-37); SGPT/ALT 31 U/L (12-78); TOT PROT 7.3 g/dl (6.4-8.2)
--- NOTE | 2017-12-10 14:01 | PN ---
Progress Note, Physician History of Present Illness: patient starting to feel better no shaking today feels very weak family in room - Current Medication List Current Medications: Active Medications Acetaminophen (Tylenol -) 650 mg PO Q6H PRN PRN Reason: FEVER Last Admin: 12/09/17 13:26 Dose: 650 mg Allopurinol (Zyloprim -) 100 mg PO DAILY [facility] Last Admin: 12/10/17 09:06 Dose: 100 mg Amlodipine Besylate (Norvasc -) 5 mg PO DAILY [facility] Last Admin: 12/10/17 09:06 Dose: 5 mg Aspirin (Ecotrin -) 81 mg PO DAILY [facility] Last Admin: 12/10/17 09:07 Dose: 81 mg Atorvastatin Calcium (Lipitor -) 10 mg PO HS [facility] Last Admin: 12/09/17 22:09 Dose: 10 mg Docusate Sodium (Colace -) 100 mg PO TID [facility] Last Admin: 12/10/17 06:45 Dose: 100 mg Glipizide (Glucotrol Xl -) 10 mg PO DAILY@0700 [facility] Last Admin: 12/10/17 06:46 Dose: 10 mg Clindamycin Phosphate (Cleocin 300 Mg Premix Ivpb) 300 mg in 50 mls @ 100 mls/ hr IVPB Q8H-IV [facility] PRN Reason: Protocol Last Admin: 12/10/17 09:07 Dose: 100 mls/hr Piperacillin Sod/Tazobactam (Sod 2.25 gm/ Dextrose) 50 mls @ 100 mls/hr IVPB Q8H-IV [facility] PRN Reason: Protocol Last Admin: 12/10/17 09:06 Dose: 100 mls/hr Sodium Chloride (Normal Saline -) 1,000 mls @ 75 mls/hr IV ASDIR [facility] Last Admin: 12/09/17 17:36 Dose: Not Given Insulin Aspart (Novolog Vial Sliding Scale -) 1 vial SQ ACHS [facility] PRN Reason: Protocol Last Admin: 12/10/17 11:00 Dose: Not Given Metoprolol Succinate (Toprol Xl -) 50 mg PO DAILY [facility] Last Admin: 12/10/17 09:06 Dose: 50 mg Sitagliptin Phosphate (Januvia -) 50 mg PO DAILY@0700 [facility] Last Admin: 12/10/17 06:45 Dose: 50 mg - Objective Vital Signs: Vital Signs Temperature 98.5 F 12/10/17 09:14 Pulse Rate 72 12/10/17 09:14 Respiratory Rate 20 12/10/17 09:14 Blood Pressure 135/76 12/10/17 09:14 O2 Sat by Pulse Oximetry (%) 97 12/09/17 21:00 Constitutional: Yes: No Distress, Calm Cardiovascular: Yes: Regular Rate and Rhythm Respiratory: Yes: Regular, CTA Bilaterally Gastrointestinal: Yes: Normal Bowel Sounds, Soft Musculoskeletal: Yes: WNL Extremities: Yes: WNL Neurological: Yes: Alert, Oriented Psychiatric: Yes: Alert, Oriented Labs: CBC, BMP 12/10/17 10:08 12/10/17 10:08 INR, PTT INR 1.05 (0.82-1.09) 12/08/17 09:23 Assessment/Plan patient still havng chills and low grade fever ct scans noted i think the infection did come from the sinuses all cx reports noted sepsis fever dm ac sinusitis plan continue abx monitor wbc rest continue current mgmt monitor for fevers if patient remains stable then will switch to oral abx
--- NOTE | 2017-12-10 14:57 | PN ---
Physical Exam: SUBJECTIVE: Patient seen and examined at the bedside. Feels better today. OOB to chair. Grandson at bedside. OBJECTIVE: afebrile x 24 hours Possible d/c tomorrow as per ID blood and urine cultures negative Vital Signs Period Temp Pulse Resp BP Sys/Kay Pulse Ox Last 24 Hr 97.9 F-99.1 F 68-72 18-20 126-159/56-79 97-98 GENERAL: Awake, alert, and fully oriented, in no acute distress. HEAD: Normal with no signs of trauma. EYES: Pupils equal, round and reactive to light, extraocular movements intact, sclera anicteric, conjunctiva clear. No lid lag. EARS, NOSE, THROAT: Ears normal, nares patent, oropharynx clear without exudates. Moist mucous membranes. NECK: Normal range of motion, supple without lymphadenopathy, JVD, or masses. LUNGS: diminished lower lobes bilaterally, left > right HEART: Regular rate and rhythm ABDOMEN: Soft, nontender, mildly distended MUSCULOSKELETAL: Normal range of motion at all joints. No bony deformities or tenderness. No CVA tenderness. UPPER EXTREMITIES: mild tremors at rest LOWER EXTREMITIES: No peripheral edema. NEUROLOGICAL: awake, alert, mild upper body tremors at rest PSYCHIATRIC: Cooperative. Good eye contact. Appropriate mood and affect. SKIN: Warm, dry, normal turgor, no rashes or lesions noted, normal capillary refill. Laboratory Results - last 24 hr 12/09/17 12/09/17 12/09/17 10:45 12:20 17:35 WBC RBC Hgb Hct MCV MCH MCHC RDW Plt Count MPV Neutrophils % Lymphocytes % Monocytes % Eosinophils % Basophils % Nucleated RBC % Sodium Potassium Chloride Carbon Dioxide Anion Gap BUN Creatinine Creat Clearance w eGFR POC Glucometer 97 115 Random Glucose Hemoglobin A1c % 9.0 H Calcium Magnesium Total Bilirubin AST ALT Alkaline Phosphatase Total Protein Albumin U Random Total Protein Ur Random Sodium Urine Creatinine Protein/Creatinin Ratio 12/09/17 12/09/17 12/09/17 18:00 18:00 18:00 WBC RBC Hgb Hct MCV MCH MCHC RDW Plt Count MPV Neutrophils % Lymphocytes % Monocytes % Eosinophils % Basophils % Nucleated RBC % Sodium Potassium Chloride Carbon Dioxide Anion Gap BUN Creatinine Creat Clearance w eGFR POC Glucometer Random Glucose Hemoglobin A1c % Calcium Magnesium Total Bilirubin AST ALT Alkaline Phosphatase Total Protein Albumin U Random Total Protein 60 H Ur Random Sodium 108 Urine Creatinine 102.0 102.0 Protein/Creatinin Ratio 0.6 12/09/17 12/10/17 12/10/17 22:19 05:26 10:08 WBC 6.8 RBC 4.45 Hgb 13.0 Hct 38.2 MCV 85.9 MCH 29.2 MCHC 34.0 RDW 15.0 Plt Count 175 MPV 7.7 Neutrophils % 62.5 Lymphocytes % 22.7 Monocytes % 9.3 Eosinophils % 4.5 Basophils % 1.0 Nucleated RBC % 0 Sodium Potassium Chloride Carbon Dioxide Anion Gap BUN Creatinine Creat Clearance w eGFR POC Glucometer 181 127 Random Glucose Hemoglobin A1c % Calcium Magnesium Total Bilirubin AST ALT Alkaline Phosphatase Total Protein Albumin U Random Total Protein Ur Random Sodium Urine Creatinine Protein/Creatinin Ratio 12/10/17 12/10/17 10:08 11:12 WBC RBC Hgb Hct MCV MCH MCHC RDW Plt Count MPV Neutrophils % Lymphocytes % Monocytes % Eosinophils % Basophils % Nucleated RBC % Sodium 135 L Potassium 3.8 Chloride 104 Carbon Dioxide 21 Anion Gap 10 BUN 24 H Creatinine 1.8 H Creat Clearance w eGFR 36.30 POC Glucometer 124 Random Glucose 151 H Hemoglobin A1c % Calcium 7.8 L Magnesium 2.3 Total Bilirubin 1.0 D AST 24 D ALT 31 Alkaline Phosphatase 36 L Total Protein 7.3 Albumin 3.4 U Random Total Protein Ur Random Sodium Urine Creatinine Protein/Creatinin Ratio Active Medications Generic Name Dose Route Start Last Admin Trade Name Freq PRN Reason Stop Dose Admin Acetaminophen 650 mg 12/08/17 14:55 12/09/17 13:26 Tylenol - PO 650 mg Q6H PRN Administration FEVER Allopurinol 100 mg 12/09/17 10:00 12/10/17 09:06 Zyloprim - PO 100 mg DAILY [facility] Administration Amlodipine Besylate 5 mg 12/09/17 10:00 12/10/17 09:06 Norvasc - PO 5 mg DAILY [facility] Administration Aspirin 81 mg 12/09/17 10:00 12/10/17 09:07 Ecotrin - PO 81 mg DAILY [facility] Administration Atorvastatin Calcium 10 mg 12/08/17 22:00 12/09/17 22:09 Lipitor - PO 10 mg HS [facility] Administration Docusate Sodium 100 mg 12/08/17 22:00 12/10/17 06:45 Colace - PO 100 mg TID [facility] Administration Glipizide 10 mg 12/09/17 07:00 12/10/17 06:46 Glucotrol Xl - PO 10 mg DAILY@0700 [facility] Administration Clindamycin Phosphate 300 mg in 50 mls @ 100 mls/hr 12/08/17 18:00 12/10/17 09:07 Cleocin 300 Mg Premix Ivpb IVPB 100 mls/hr Q8H-IV [facility] Administration Protocol Piperacillin Sod/Tazobactam 50 mls @ 100 mls/hr 12/08/17 13:45 12/10/17 09:06 Sod 2.25 gm/ Dextrose IVPB 100 mls/hr Q8H-IV [facility] Administration Protocol Sodium Chloride 1,000 mls @ 75 mls/hr 12/08/17 14:45 12/09/17 17:36 Normal Saline - IV Not Given ASDIR [facility] Insulin Aspart 1 vial 12/08/17 16:30 12/10/17 11:00 Novolog Vial Sliding Scale - SQ Not Given ACHS [facility] Protocol Metoprolol Succinate 50 mg 12/09/17 10:00 12/10/17 09:06 Toprol Xl - PO 50 mg DAILY [facility] Administration Sitagliptin Phosphate 50 mg 12/09/17 07:00 12/10/17 06:45 Januvia - PO 50 mg DAILY@0700 [facility] Administration ASSESSMENT/PLAN: Patient is an 82 year old male with a significant past medical history of hypertension, enlarged prostate, CKD and diabetes mellitus II. He presents to the ED today accompanied by his daughter in law for subjective fevers of 103F at home. As per daughter in law, patient had fever to 103F and general malaise. She noticed that he was confused also during the febrile episode. Patient was recently treated for a nosebleed 5 days prior to admission and left nare was packed with xerofoam. The packing remained in place but was removed in the ER. Patient was prescribed Amoxicillin by ENT and reports taking the medication. 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 No CT evidence of acute infarct. CT/Sinus CT w/o contrast: chronic right maxillary sinusitis. ENT: Left nare nose epistaxis, s/p packing x 5 days No signs of bleeding at this time Hold of on anticoagulation Consider ENT inpatient evaluation if symptoms worsen Patient to seen ENT outpatient otherwise CT of sinus with chronic right max. sinusitis ID: Likely early sepsis Subjective fevers with chills and general malaise on presentation, resolved Symptoms began 3 days prior Early sepsis from ? Sinusitis Afebrile x 24 hours, WBC normal, lactic acid wnl with repeat labs but initially elevated Blood cultures pending/urine cultures negative On Zosyn and Clindamycin UA with mild infection, UC negative Discharge tomorrow likely as per ID Neuro: Metabolic encephalopathy, resolved Mental status back to baseline, Head CT negative Renal MOHSEN on CKD Baseline creat ~ 2.2 comes in with 2.9 creatinine, has peaked to 5.2 on previous admission Improving with IVF Bladder u/s negative for hydro Renal following Card: Hypertension, controlled On Toprol XL 50 and amlodipine 5mg Endo: Diabetes Mellitus, chronic On Januvia and Glipizide BGMs ac/hs Sliding scale w/ Novolog F.E.N. Fluids: NS @ 75cc/hr Electrolytes: monitor Nutriton: diabetic diet Prophylaxis DVT: SCDs, hold off on any anticoag 2/2 to recent epistaxis GI: Protonix Disposition: full code Visit type - Emergency Visit Emergency Visit: Yes ED Registration Date: 12/08/17 Care time: The patient presented to the Emergency Department on the above date and was hospitalized for further evaluation of their emergent condition. - New Patient This patient is new to me today: No - Critical Care Critical Care patient: No - Discharge Referral Referred to [facility] Med P.C.: No
[2017-12-10] MEDS: SODIUM CHLORIDE 1,000 ML IV SCH (16:52)
--- NOTE | 2017-12-10 17:55 | PN ---
Progress Note (short form) - Note Progress Note: Renal Follow up for MOHSEN on CKD pt seen and examined at the bedside feels better making urine no sob, chest pain, fever, chills Vital Signs Temperature 97.9 F 12/10/17 13:58 Pulse Rate 71 12/10/17 13:58 Respiratory Rate 20 12/10/17 13:58 Blood Pressure 126/72 12/10/17 13:58 O2 Sat by Pulse Oximetry (%) 98 12/10/17 09:00 Intake & Output 12/07/17 12/08/17 12/09/17 12/10/17 23:59 23:59 23:59 23:59 Intake Total 3250 1220 2500 Output Total 400 650 Balance 2850 1220 1850 Weight 84.425 kg NAD awake and alert RRR, No M/R CTA, soft NT/ND No LE edema CBC, BMP 12/10/17 10:08 12/10/17 10:08 Current Medications Acetaminophen (Tylenol -) 650 mg PO Q6H PRN PRN Reason: FEVER Last Admin: 12/09/17 13:26 Dose: 650 mg Allopurinol (Zyloprim -) 100 mg PO DAILY [facility] Last Admin: 12/10/17 09:06 Dose: 100 mg Amlodipine Besylate (Norvasc -) 5 mg PO DAILY [facility] Last Admin: 12/10/17 09:06 Dose: 5 mg Aspirin (Ecotrin -) 81 mg PO DAILY [facility] Last Admin: 12/10/17 09:07 Dose: 81 mg Atorvastatin Calcium (Lipitor -) 10 mg PO HS [facility] Last Admin: 12/09/17 22:09 Dose: 10 mg Docusate Sodium (Colace -) 100 mg PO TID [facility] Last Admin: 12/10/17 15:00 Dose: 100 mg Glipizide (Glucotrol Xl -) 10 mg PO DAILY@0700 [facility] Last Admin: 12/10/17 06:46 Dose: 10 mg Clindamycin Phosphate (Cleocin 300 Mg Premix Ivpb) 300 mg in 50 mls @ 100 mls/ hr IVPB Q8H-IV [facility] PRN Reason: Protocol Last Admin: 12/10/17 17:02 Dose: 100 mls/hr Piperacillin Sod/Tazobactam (Sod 2.25 gm/ Dextrose) 50 mls @ 100 mls/hr IVPB Q8H-IV [facility] PRN Reason: Protocol Last Admin: 12/10/17 17:02 Dose: 100 mls/hr Sodium Chloride (Normal Saline -) 1,000 mls @ 75 mls/hr IV ASDIR [facility] Last Admin: 12/10/17 16:52 Dose: 75 mls/hr Insulin Aspart (Novolog Vial Sliding Scale -) 1 vial SQ ACHS [facility] PRN Reason: Protocol Last Admin: 12/10/17 17:25 Dose: Not Given Metoprolol Succinate (Toprol Xl -) 50 mg PO DAILY [facility] Last Admin: 12/10/17 09:06 Dose: 50 mg Sitagliptin Phosphate (Januvia -) 50 mg PO DAILY@0700 [facility] Last Admin: 12/10/17 06:45 Dose: 50 mg ASSESSMENT AND PLAN: 82 year old gentleman with PMhx of CKD, Hypertension, HLD, DM who presented with fevers and admitted for Sinusitis with MOHSEN with Cr of 2.9. Grandson at the bedside. #MOHSEN on CKd #Fever #Hypertension #Hyponatremia Renal function improving will continue IVF for additional 24 hours continue Abx as per ID continue current antihypertensive meds Saw Esposito DO
[2017-12-10] MEDS: ATORVASTATIN CA 10 MG TABLET (FP) PO SCH (21:28)
[2017-12-11] MEDS: CLINDAMYCIN 300 MG PREMIX IVPB 300 MG/50 ML BAG IVPB SCH ×2 (01:02→09:21)
[2017-12-11] MEDS: PIPERACILLIN/TAZOB 2.25 GM 2.25 GM in DEXTROSE 5%-WATER - 50 ML IVPB SCH ×2 (01:03→09:21)
[2017-12-11 08:44] LABS: ANION GAP 11 (8-16); BLOOD UREA NITROGEN 23 mg/dL (7-18); CALCIUM 7.9 mg/dL (8.5-10.1); CHLORIDE 103 mmol/L (98-107); CO2 22 mmol/L (21-32); CREATININE 1.9 mg/dL (0.7-1.3); GLUCOSE,RANDOM 140 mg/dL (74-106); MAGNESIUM 2.6 mg/dL (1.8-2.4); PHOSPHOROUS 3.6 mg/dL (2.5-4.9); POTASSIUM 4.5 mmol/L (3.5-5.1); SODIUM 136 mmol/L (136-145)
[2017-12-11] MEDS ORDERED: DEXTROSE 5%-WATER - 50 ML IVPB ONE (09:13)
[2017-12-11] MEDS ORDERED: PIPERACILLIN/TAZOBACTAM 2.25 GM VIAL IVPB ONE (09:13)
[2017-12-11 09:20] VITALS: TEMP 98.3
[2017-12-11] MEDS: amLODIPine BESYLATE 5 MG TABLET (FP) PO SCH (09:22)
[2017-12-11] MEDS: ALLOPURINOL 100 MG TABLET (FP) PO SCH (09:22)
[2017-12-11] MEDS: INSULIN SLIDING SCALE (NOVOLOG) 1 VIAL SQ SCH ×2 (09:22→12:44)
[2017-12-11] MEDS: ASPIRIN COATED 81 MG TABLET.EC PO SCH (09:22)
[2017-12-11] MEDS: DOCUSATE SODIUM 100 MG CAPSULE (FP) PO SCH (09:23)
[2017-12-11] MEDS: sitaGLIPtin PHOSPHATE 50 MG TABLET PO SCH (09:23)
[2017-12-11] MEDS: glipiZIDE-XL 10 MG TAB.ER.24 (FP) PO SCH (09:23)
--- NOTE | 2017-12-11 12:33 | PN ---
Progress Note, Physician History of Present Illness: doing well no complaints no issues - Current Medication List Current Medications: Active Medications Acetaminophen (Tylenol -) 650 mg PO Q6H PRN PRN Reason: FEVER Last Admin: 12/09/17 13:26 Dose: 650 mg Allopurinol (Zyloprim -) 100 mg PO DAILY [facility] Last Admin: 12/11/17 09:22 Dose: 100 mg Amlodipine Besylate (Norvasc -) 5 mg PO DAILY [facility] Last Admin: 12/11/17 09:22 Dose: 5 mg Aspirin (Ecotrin -) 81 mg PO DAILY [facility] Last Admin: 12/11/17 09:22 Dose: 81 mg Atorvastatin Calcium (Lipitor -) 10 mg PO HS [facility] Last Admin: 12/10/17 21:28 Dose: 10 mg Docusate Sodium (Colace -) 100 mg PO TID [facility] Last Admin: 12/11/17 09:23 Dose: Not Given Glipizide (Glucotrol Xl -) 10 mg PO DAILY@0700 [facility] Last Admin: 12/11/17 09:23 Dose: Not Given Clindamycin Phosphate (Cleocin 300 Mg Premix Ivpb) 300 mg in 50 mls @ 100 mls/ hr IVPB Q8H-IV [facility]; Protocol Last Admin: 12/11/17 09:21 Dose: 100 mls/hr Piperacillin Sod/Tazobactam (Sod 2.25 gm/ Dextrose) 50 mls @ 100 mls/hr IVPB Q8H-IV [facility]; Protocol Last Admin: 12/11/17 09:21 Dose: 100 mls/hr Sodium Chloride (Normal Saline -) 1,000 mls @ 75 mls/hr IV ASDIR [facility] Last Admin: 12/10/17 16:52 Dose: 75 mls/hr Insulin Aspart (Novolog Vial Sliding Scale -) 1 vial SQ ACHS [facility]; Protocol Last Admin: 12/11/17 09:22 Dose: Not Given Metoprolol Succinate (Toprol Xl -) 50 mg PO DAILY [facility] Last Admin: 12/11/17 09:22 Dose: 50 mg Sitagliptin Phosphate (Januvia -) 50 mg PO DAILY@0700 [facility] Last Admin: 12/11/17 09:23 Dose: Not Given - Objective Vital Signs: Vital Signs Temperature 98.3 F 12/11/17 09:19 Pulse Rate 65 12/11/17 09:19 Respiratory Rate 18 12/11/17 09:19 Blood Pressure 134/69 12/11/17 09:19 O2 Sat by Pulse Oximetry (%) 96 12/11/17 09:00 Constitutional: Yes: No Distress, Calm Cardiovascular: Yes: Regular Rate and Rhythm Respiratory: Yes: Regular, CTA Bilaterally Gastrointestinal: Yes: Normal Bowel Sounds, Soft Musculoskeletal: Yes: WNL Extremities: Yes: WNL Neurological: Yes: Alert, Oriented Psychiatric: Yes: Alert, Oriented Labs: CBC, BMP 12/10/17 10:08 INR, PTT INR 1.05 (0.82-1.09) 12/08/17 09:23 Assessment/Plan patient still havng chills and low grade fever ct scans noted i think the infection did come from the sinuses all cx reports noted sepsis fever dm ac sinusitis plan switch patient to oral clinda 300 mg every 8 hourly for 8 more days and augmentin 500 mg daily for 5 more days
[2017-12-11 12:54] LABS: BASO % 0.7 % (0-2.0); EOS % 4.1 % (0-4.5); HEMATOCRIT 41.4 % (35.4-49); HEMOGLOBIN 13.8 GM/dL (11.7-16.9); LYMPH % 27.7 % (8-40); MCH 29.1 pg (25.7-33.7); MCHC 33.3 g/dl (32.0-35.9); MEAN CELL VOLUME 87.3 fl (80-96); MONO % 10.7 % (3.8-10.2); NEUT % 56.8 % (42.8-82.8); PLATELET COUNT 199 K/MM3 (134-434); RBC 4.74 M/mm3 (4.00-5.60); RDW 15.8 % (11.9-15.9); WHITE BLOOD COUNT 7.5 K/mm3 (4.0-10.0)
[2017-12-11 13:43] VITALS: BP 128/73; PULSE 61
[2017-12-11 14:29] LABS: ALBUMIN 3.5 g/dl (3.4-5.0); ALK PHOS 37 U/L (45-117); BILIRUBIN,TOTAL 0.6 mg/dL (0.2-1.0); SGOT/AST 33 U/L (15-37); SGPT/ALT 39 U/L (12-78); TOT PROT 7.6 g/dl (6.4-8.2)
--- NOTE | 2017-12-11 18:12 | PN ---
Progress Note (short form) - Note Progress Note: Renal Follow up for MOHSEN on CKD pt seen and examined at the bedside awake and alert no acute complaints Vital Signs Temperature 98.3 F 12/11/17 13:41 Pulse Rate 61 12/11/17 13:41 Respiratory Rate 20 12/11/17 13:41 Blood Pressure 128/73 12/11/17 13:41 O2 Sat by Pulse Oximetry (%) 96 12/11/17 09:00 NAD awake and alert RRR, No M/R CTA, soft NT/ND No LE edema ASSESSMENT AND PLAN: 82 year old gentleman with PMhx of CKD, Hypertension, HLD, DM who presented with fevers and admitted for Sinusitis with MOHSEN with Cr of 2.9. Grandson at the bedside. #MOHSEN on CKd #Fever #Hypertension #Hyponatremia Renal function stable stable for discharge with outpatient follow up advised to maintain good oral fluid intake and avoid nsaids to follow up in our office in 2 weeks Saw Esposito DO
== END 2017-12-11 14:30 | disposition home or self-care (01) | DRG 871 ==
LOC: JER 08:25 → JERBED 12:17 → J7W 19:00
PROVIDERS: ADMIT Internal Medicine; ATTEND Registered Nurse
DX: A41.9 Sepsis, unspecified organism (principal); G93.41 Metabolic encephalopathy; N17.9 Acute kidney failure, unspecified; J98.11 Atelectasis; E87.1 Hypo-osmolality and hyponatremia; N39.0 Urinary tract infection, site not specified; N40.0 Benign prostatic hyperplasia without lower urinary tract symptoms; Z79.84 Long term (current) use of oral hypoglycemic drugs; E11.22 Type 2 diabetes mellitus with diabetic chronic kidney disease; I12.9 Hypertensive chronic kidney disease with stage 1 through stage 4 chronic kidney disease, or unspecified chronic kidney disease; N18.9 Chronic kidney disease, unspecified; J01.90 Acute sinusitis, unspecified
CPT/HCPCS: 36415; 70450-TC; 70486-TC; 71045-TC-FY; 76775-TC; 80048; 80053; 80061; 81003; 81015; 82570; 82962; 83036; 83605; 83721; 83735; 84100; 84156; 84300; 84484; 85025; 85610; 85730; 87040; 87086; 93005; 93010; 97116-GP; 97161-GP; 99285-25; J7030

== ENCOUNTER 2021-10-24 04:18 | Day surgery (SDC) | payer OTHER ==
[2021-10-20 13:48] VITALS: BMI 27.1
[2021-10-24] MEDS ORDERED: oxyCODONE HCL 5 MG TABLET PO PRN (11:58)
[2021-10-24] MEDS ORDERED: ONDANSETRON 4 MG/2 ML VIAL IVPUSH PRN ×2 (11:58→13:06)
[2021-10-24] MEDS ORDERED: LACTATED RINGERS SOLUTION 1,000 ML IV SCH ×2 (12:00→13:15)
[2021-10-24] MEDS ORDERED: ELECTROLYTE-148 SOLN 1,000 ML IV SCH (12:15)
[2021-10-24] MEDS ORDERED: PROPOFOL 20 ML ONE (12:22)
[2021-10-24] MEDS ORDERED: LIDOCAINE HCL/PF 2% SDV 5ML VIAL ONE ×2 (12:26→12:39)
[2021-10-24] MEDS ORDERED: ceFAZolin SODIUM 1 GM VIAL ONE (12:39)
[2021-10-24] MEDS ORDERED: PROMETHAZINE HCL 25 MG/1 ML VIAL IVPUSH PRN (13:06)
[2021-10-24 14:37] VITALS: TEMP 97.8
[2021-10-24 16:05] VITALS: BP 149/62; PULSE 58
== END 2021-10-24 15:30 | disposition home or self-care (01) ==
LOC: JASU-SURG 04:18
PROVIDERS: ATTEND Urology
PROC: 0T5C8ZZ Destruction of Bladder Neck, Via Natural or Artificial Opening Endoscopic (ICD-10-PCS; 2021-10-24)
PROC: 0T5B8ZZ Destruction of Bladder, Via Natural or Artificial Opening Endoscopic (ICD-10-PCS; principal; 2021-10-24 11:15)
DX: R31.0 Gross hematuria (principal); E11.9 Type 2 diabetes mellitus without complications; I10 Essential (primary) hypertension
CPT/HCPCS: 88304-TC; 94760